=== PATIENT | male | born 1940 | race Two or more races ===

== ENCOUNTER → 2016-11-11 | Outpatient (CLI) | payer MEDICARE, BC ==
[2016-11-11 09:09] LABS: Urine RBC None Seen /hpf (0 - 3)
[2016-11-11 09:24] LABS: Basophils # (auto) 0.1 uL; Basophils % (auto) 0.9 % (0.0-2.0); Eosinophils # (auto) 0.2 uL; Eosinophils % (auto) 4.1 % (0.0-7.0); Hematocrit 40.8 % (41.0-53.0); Hemoglobin 13.6 g/dL (13.5-17.5); Lymphocytes # (auto) 2.1 uL; Lymphocytes % (auto) 34.3 % (10.0-50.0); Mean Corpuscular Hemoglobin 31.2 pg (28.0-32.0); Mean Corpuscular Hgb Conc. 33.3 g/dL (32.0-36.0); Mean Corpuscular Volume 93.8 fL (80.0-100.0); Mean Platelet Volume 9.4 fL (7.4-10.4); Monocytes # (auto) 0.5 uL; Monocytes % (auto) 8.2 % (0.0-12.0); Neutrophils # (auto) 3.2 uL; Neutrophils % (auto) 52.5 % (37.0-80.0); Platelet Count (auto) 249 10^3/uL (140-450); Red Cell Distribution Width 13.6 % (11.6-16.0)
[2016-11-11 09:40] LABS: Urine Bilirubin Negative (Negative); Urine Blood Negative /uL (Negative); Urine Color Yellow (Yellow); Urine Glucose Normal (Normal); Urine Hyaline Cast FEW /lpf (0 - 2); Urine Ketone Negative (Negative); Urine Mucus FEW (None Seen); Urine Nitrite Negative (Negative); Urine Squamous Epithelial Cell FEW /hpf (<5); Urine Urobilinogen Normal (Negative); Urine pH 5.5 (5.0-8.0)
[2016-11-11 10:37] LABS: Albumin 3.6 g/dL (3.4-5.0); BUN/Creatinine Ratio 20.8; Bilirubin, Total 0.7 mg/dL (0.2-1.0); Calcium 9.2 mg/dL (8.5-10.1); Potassium 3.7 mmol/L (3.5-5.1); Total Protein 7.5 g/dL (6.4-8.2)
== END | disposition home or self-care (01) ==
LOC: LAB 08:12
PROVIDERS: ATTEND Family Medicine
DX: I10 Essential (primary) hypertension (principal); E78.4 Other hyperlipidemia; E10.9 Type 1 diabetes mellitus without complications
CPT/HCPCS: 36415; 80053; 80061; 81001; 82043; 82306; 82607; 83036; 84443; 85025

== ENCOUNTER → 2017-12-19 | Outpatient (CLI) | payer MEDICARE, BC ==
[2017-12-19 09:20] LABS: Basophils # (auto) 0.1 uL; Basophils % (auto) 0.9 % (0.0-2.0); Eosinophils # (auto) 0.3 uL; Eosinophils % (auto) 4.6 % (0.0-7.0); Hematocrit 38.5 % (41.0-53.0); Hemoglobin 13.2 g/dL (13.5-17.5); Lymphocytes # (auto) 1.9 uL; Lymphocytes % (auto) 29.7 % (10.0-50.0); Mean Corpuscular Hemoglobin 32.2 pg (28.0-32.0); Mean Corpuscular Hgb Conc. 34.2 g/dL (32.0-36.0); Mean Corpuscular Volume 94.2 fL (80.0-100.0); Monocytes # (auto) 0.6 uL; Monocytes % (auto) 9.1 % (0.0-12.0); Neutrophils # (auto) 3.5 uL; Neutrophils % (auto) 55.7 % (37.0-80.0); Platelet Count (auto) 236 10^3/uL (140-450); Red Blood Cells 4.09 10^6/uL (4.5-5.90); White Blood Cell 6.3 10^3/uL (4.4-10.8)
[2017-12-19 09:43] LABS: Urine Bacteria NONE SEEN /hpf (None Seen); Urine Blood Negative /uL (Negative); Urine Mucus FEW (None Seen); Urine Specific Gravity 1.015 (1.001-1.035); Urine WBC 3 /hpf (0 - 3)
[2017-12-19 09:57] LABS: Albumin 3.2 g/dL (3.4-5.0); BUN/Creatinine Ratio 22.4; Bilirubin, Total 0.7 mg/dL (0.2-1.0); Calcium 8.5 mg/dL (8.5-10.1); Potassium 3.9 mmol/L (3.5-5.1); Total Protein 7.2 g/dL (6.4-8.2)
== END | disposition home or self-care (01) ==
LOC: LAB 08:39
PROVIDERS: ATTEND Family Medicine
DX: I10 Essential (primary) hypertension (principal); E11.9 Type 2 diabetes mellitus without complications; E66.9 Obesity, unspecified; E78.4 Other hyperlipidemia; Z72.0 Tobacco use
CPT/HCPCS: 36415; 80053; 80061; 81001; 82043; 82607; 83036; 84443; 85025

== ENCOUNTER → 2018-06-22 | Outpatient (CLI) | payer MEDICARE, OTHER ==
[~2018-06-22] VITALS: Ht 180.3 cm; Wt 120.7 kg
[~2018-06-22] MED LIST: ADENOSINE 102 MG in GIVE UN-DILUTED 0 ML IV ONE
[2018-06-22 10:33] VITALS: BP 140/54
== END | disposition home or self-care (01) ==
LOC: XY 07:31
PROVIDERS: ATTEND Internal Medicine Cardiovascular Disease
DX: R60.9 Edema, unspecified (principal)
CPT/HCPCS: 78452; 93017; A9500; J0153

== ENCOUNTER 2018-12-04 05:17 | Inpatient (IN) | payer MEDICARE, OTHER | END 2018-12-08 14:20 | disposition home or self-care (01) | LOC: ER 05:17 → TELE 11:35 → TELE-EAST 22:35 | PROC: B41G1ZZ Fluoroscopy of Left Lower Extremity Arteries using Low Osmolar Contrast (ICD-10-PCS; principal; ~2018-12-04) | PROC: B41F1ZZ Fluoroscopy of Right Lower Extremity Arteries using Low Osmolar Contrast (ICD-10-PCS; ~2018-12-04) | DX: L03.116 Cellulitis of left lower limb (principal); I50.43 Acute on chronic combined systolic (congestive) and diastolic (congestive) heart failure; I13.0 Hypertensive heart and chronic kidney disease with heart failure and stage 1 through stage 4 chronic kidney disease, or unspecified chronic kidney disease; E44.0 Moderate protein-calorie malnutrition; E11.51 Type 2 diabetes mellitus with diabetic peripheral angiopathy without gangrene; E11.22 Type 2 diabetes mellitus with diabetic chronic kidney disease; E78.00 Pure hypercholesterolemia, unspecified; D64.9 Anemia, unspecified; E66.9 Obesity, unspecified; D63.1 Anemia in chronic kidney disease; E87.6 Hypokalemia; R53.1 Weakness ==

== ENCOUNTER 2019-03-11 08:13 | Inpatient (IN) | payer MEDICARE, BC, OTHER | END 2019-03-16 12:50 | LOC: TELE-CENTR 03-13 12:20 → ER 08:13 → TELE 11:22 | DX: I21.4 Non-ST elevation (NSTEMI) myocardial infarction (principal); I50.43 Acute on chronic combined systolic (congestive) and diastolic (congestive) heart failure; G93.41 Metabolic encephalopathy; J96.00 Acute respiratory failure, unspecified whether with hypoxia or hypercapnia; N17.0 Acute kidney failure with tubular necrosis; G45.9 Transient cerebral ischemic attack, unspecified; I13.0 Hypertensive heart and chronic kidney disease with heart failure and stage 1 through stage 4 chronic kidney disease, or unspecified chronic kidney disease; N18.4 Chronic kidney disease, stage 4 (severe); I48.0 Paroxysmal atrial fibrillation; E11.21 Type 2 diabetes mellitus with diabetic nephropathy; E11.40 Type 2 diabetes mellitus with diabetic neuropathy, unspecified; E11.22 Type 2 diabetes mellitus with diabetic chronic kidney disease; D63.8 Anemia in other chronic diseases classified elsewhere ==

== ENCOUNTER 2019-12-11 16:11 | Inpatient (IN) | payer MEDICARE, OTHER ==
[~2019-12-11] VITALS: Ht 175.3 cm; Wt 94.0 kg
[~2019-12-11 16:11] MED LIST changes: -ADENOSINE 102 MG in GIVE UN-DILUTED 0 ML IV ONE; +AMI25T PO; +ASPI81CH43 PO; +ATOR10TA PO; +CLOP75TA28 PO; +CYA100I PO; +DULA1INJ SC; +FENO145T27 OR; +FERR-20 PO; +FURO40TA4 PO; +GABA300C10 PO; +GLIP5TAB12 PO; +INSU100I24 SC; +LEVEMIR SC; +METO-6 PO; +PANT40T PO
[2019-12-11] MEDS ORDERED: FUROSEMIDE 40 MG/4 ML VIAL IV ONE (16:45)
[2019-12-11 17:06] LABS: Basophils # (auto) 0.1 10 ^3/uL (0-0.2); Basophils % (auto) 1.2 % (0.0-2.0); Eosinophils # (auto) 0.1 10 ^3/uL (0-0.8); Eosinophils % (auto) 2.4 % (0.0-7.0); Lymphocytes # (auto) 0.6 10 ^3/uL (0.4-5.4); Lymphocytes % (auto) 12.3 % (10.0-50.0); Mean Corpuscular Hemoglobin 31.8 pg (28.0-32.0); Mean Corpuscular Hgb Conc. 33.5 g/dL (32.0-36.0); Monocytes # (auto) 0.4 10 ^3/uL (0-1.3); Monocytes % (auto) 9.3 % (0.0-12.0); Neutrophils # (auto) 3.5 10 ^3/uL (1.6-8.6); Neutrophils % (auto) 74.8 % (37.0-80.0); Platelet Count (auto) 203 10^3/uL (140-450); Red Blood Cells 2.84 10^6/uL (4.5-5.90); White Blood Cell 4.7 10^3/uL (4.4-10.8)
[2019-12-11 17:29] LABS: Alanine Aminotransferase 18 U/L (16-61); Albumin 2.4 g/dL (3.4-5.0); Anion Gap 2 (5-15); Aspartate Aminotransferase 39 U/L (15-37); BUN/Creatinine Ratio 14.2; Blood Urea Nitrogen 21 mg/dL (7-18); Calcium 8.1 mg/dL (8.5-10.1); Carbon Dioxide 25 mmol/L (21-32); Chloride 111 mmol/L (98-107); GFR African American 59 mL/min; GFR Non-African American 49 mL/min; Glucose 129 mg/dL (74-106); Potassium 4.3 mmol/L (3.5-5.1); Sodium 138 mmol/L (136-145)
[2019-12-11 17:33] LABS: Alkaline Phosphatase 59 U/L (45-117); Bilirubin, Total 0.8 mg/dL (0.2-1.0); Total Protein 6.6 g/dL (6.4-8.2)
[2019-12-11] MEDS ORDERED: NITROGLYCERIN 0.4 MG SL TAB SL PRN (19:30)
[2019-12-11] MEDS ORDERED: MORPHINE SULF INJ 2 MG/ML SYRINGE 1ML IV PRN ×2 (19:30)
[2019-12-11] MEDS ORDERED: DEXTROSE (50%) 50ML SYRG IV PRN (19:30)
[2019-12-11] MEDS ORDERED: ONDANSETRON HCL 4 MG/2 ML VIAL IV PRN (19:30)
[2019-12-11] MEDS ORDERED: ACETAMINOPHEN 500 MG TAB PO PRN (19:30)
[2019-12-11] MEDS ORDERED: HYDROcodone-ACET 5/325MG TAB PO PRN (19:30)
[2019-12-11 19:49] LABS: Urine Bacteria NONE SEEN /hpf (None Seen); Urine Blood Negative /uL (Negative); Urine Mucus FEW (None Seen); Urine Specific Gravity 1.007 (1.001-1.035); Urine WBC <1 /hpf (0 - 3)
[2019-12-11] MEDS: ACCU-CHEK COMFORT CURVE STRIP VI SCH (21:29)
[2019-12-11] MEDS: InsuLIN REG 1unit/0.01ml Soln (100units/ml) SC SCH (21:29)
[2019-12-11] MEDS: AMITRIPTYLINE HCL 25 MG TAB PO SCH (21:29)
[2019-12-11] MEDS: GABAPENTIN 300 MG CAP PO SCH (21:29)
[2019-12-11] MEDS: cloNIDine HCL 0.1 MG TAB PO PRN (21:30)
[2019-12-12 05:00] VITALS: BP 140/66
[2019-12-12 05:56] LABS: Basophils # (auto) 0.1 10 ^3/uL (0-0.2); Eosinophils # (auto) 0.2 10 ^3/uL (0-0.8); Eosinophils % (auto) 4.1 % (0.0-7.0); Hematocrit 28.2 % (41.0-53.0); Hemoglobin 9.5 g/dL (13.5-17.5); Lymphocytes # (auto) 1.1 10 ^3/uL (0.4-5.4); Lymphocytes % (auto) 18.4 % (10.0-50.0); Mean Corpuscular Hemoglobin 31.7 pg (28.0-32.0); Mean Corpuscular Hgb Conc. 33.6 g/dL (32.0-36.0); Mean Corpuscular Volume 94.4 fL (80.0-100.0); Monocytes # (auto) 0.6 10 ^3/uL (0-1.3); Monocytes % (auto) 9.4 % (0.0-12.0); Neutrophils % (auto) 67.1 % (37.0-80.0); Nucleated Red Blood Cells % 0.1 %; Platelet Count (auto) 245 10^3/uL (140-450); Red Blood Cells 2.99 10^6/uL (4.5-5.90); Red Cell Distribution Width 17.6 % (11.8-14.3)
[2019-12-12] MEDS ORDERED: FUROSEMIDE 40 MG/4 ML VIAL IV SCH (06:00)
[2019-12-12 06:17] LABS: Calcium 8.2 mg/dL (8.5-10.1); Potassium 3.5 mmol/L (3.5-5.1)
[2019-12-12 06:20] LABS: BUN/Creatinine Ratio 14.3
[2019-12-12] MEDS: InsuLIN REG 1unit/0.01ml Soln (100units/ml) SC SCH ×4 (06:37→21:52)
[2019-12-12] MEDS: SPIRONOLACTONE 25 MG TAB PO SCH ×2 (06:37→18:00)
[2019-12-12] MEDS: ACCU-CHEK COMFORT CURVE STRIP VI SCH ×4 (06:37→21:49)
[2019-12-12 09:29] VITALS: BP 149/72
[2019-12-12] MEDS: Fenofibrate 145 MG PO SCH (10:00)
[2019-12-12 10:55] LABS: Cholesterol 82 mg/dL (< 200); HDL Cholesterol 9 mg/dL (40-59); LDL Cholesterol 44 mg/dL (< 100); Triglycerides 171 mg/dL (< 150)
[2019-12-12 10:56] LABS: Folate (Folic Acid) 3.88 ng/mL (5.38-24)
[2019-12-12] MEDS: METOPROLOL SUCCINATE XL 50 MG TAB PO SCH (11:06)
[2019-12-12] MEDS: CLOPIDOGREL BISULFATE 75 MG TAB PO SCH (11:06)
[2019-12-12] MEDS: PANTOPRAZOLE 40 MG TAB PO SCH (11:06)
[2019-12-12] MEDS: GABAPENTIN 300 MG CAP PO SCH ×2 (11:06→21:49)
[2019-12-12] MEDS: levoFLOXacin 250MG 50 ML IV SCH (11:07)
[2019-12-12] MEDS: NICOTINE 21MG/24 HR TOPICAL PATCH TD SCH (11:07)
[2019-12-12] MEDS: ASPirin 81 mg TAB PO SCH (11:07)
[2019-12-12] MEDS: ALBUTEROL SULF 2.5 MG/0.5ML(0.5%) NEB SOLN NEB SCH ×2 (13:00→19:34)
[2019-12-12] MEDS: IPRATROPIUM BROM 0.5 MG/2.5ML INH SOL NEB SCH ×2 (13:00→19:34)
[2019-12-12 13:01] VITALS: BP 160/70
[2019-12-12] MEDS ORDERED: BUMETANIDE 2.5mg/10ml (0.25 mg/ml) INJ IV ONE (14:00)
[2019-12-12] MEDS ORDERED: FOLIC ACID 1 MG TAB PO ONE (14:00)
[2019-12-12 15:22] VITALS: BP 160/70
[2019-12-12] MEDS ORDERED: POTASSIUM CHL 20 Meq TABLET PO ONE (16:45)
[2019-12-12] MEDS ORDERED: SPIRONOLACTONE 25 MG TAB PO ONE (17:15)
[2019-12-12 17:43] VITALS: BP 147/71
[2019-12-12] MEDS: BUMETANIDE 2.5mg/10ml (0.25 mg/ml) INJ IV SCH (18:14)
[2019-12-12] MEDS: cloNIDine HCL 0.1 MG TAB PO PRN (20:56)
[2019-12-12] MEDS: ATORVASTATIN 20 MG TAB PO SCH (21:49)
[2019-12-12] MEDS: AMITRIPTYLINE HCL 25 MG TAB PO SCH (21:49)
[2019-12-12 22:00] VITALS: BP 168/76
[2019-12-13] MEDS: ALBUTEROL SULF 2.5 MG/0.5ML(0.5%) NEB SOLN NEB SCH ×4 (00:01→18:38)
[2019-12-13] MEDS: IPRATROPIUM BROM 0.5 MG/2.5ML INH SOL NEB SCH ×4 (00:01→18:39)
[2019-12-13 02:00] VITALS: BP 126/63
[2019-12-13 04:49] VITALS: BP 134/56
[2019-12-13 06:11] LABS: BUN/Creatinine Ratio 16.8; Calcium 8.5 mg/dL (8.5-10.1); Potassium 3.9 mmol/L (3.5-5.1)
[2019-12-13] MEDS: InsuLIN REG 1unit/0.01ml Soln (100units/ml) SC SCH ×4 (06:38→22:00)
[2019-12-13] MEDS: ACCU-CHEK COMFORT CURVE STRIP VI SCH ×4 (06:38→21:55)
[2019-12-13] MEDS: SPIRONOLACTONE 25 MG TAB PO SCH ×2 (06:38→17:37)
[2019-12-13] MEDS: BUMETANIDE 2.5mg/10ml (0.25 mg/ml) INJ IV SCH ×2 (06:38→17:39)
[2019-12-13 09:00] VITALS: BP 131/58
[2019-12-13] MEDS: Fenofibrate 145 MG PO SCH (10:00)
[2019-12-13] MEDS: ASPirin 81 mg TAB PO SCH (10:48)
[2019-12-13] MEDS: levoFLOXacin 250MG 50 ML IV SCH (10:48)
[2019-12-13] MEDS: PANTOPRAZOLE 40 MG TAB PO SCH (10:49)
[2019-12-13] MEDS: GABAPENTIN 300 MG CAP PO SCH ×2 (10:49→21:52)
[2019-12-13] MEDS: CLOPIDOGREL BISULFATE 75 MG TAB PO SCH (10:49)
[2019-12-13] MEDS: POTASSIUM CHL 20 Meq TABLET PO SCH (10:49)
[2019-12-13] MEDS: FOLIC ACID 1 MG TAB PO SCH (10:49)
[2019-12-13] MEDS: METOPROLOL SUCCINATE XL 50 MG TAB PO SCH (10:50)
[2019-12-13] MEDS: NICOTINE 21MG/24 HR TOPICAL PATCH TD SCH (10:51)
[2019-12-13 13:00] VITALS: BP 152/74
[2019-12-13 17:00] VITALS: BP 155/82
[2019-12-13] MEDS: cloNIDine HCL 0.1 MG TAB PO PRN (21:52)
[2019-12-13] MEDS: AMITRIPTYLINE HCL 25 MG TAB PO SCH (21:53)
[2019-12-13] MEDS: ATORVASTATIN 20 MG TAB PO SCH (21:53)
[2019-12-13 22:00] VITALS: BP 165/81
[2019-12-14] VITALS (7 sets, daily range): BP systolic 135–166; BP diastolic 64–74
[2019-12-14] MEDS: IPRATROPIUM BROM 0.5 MG/2.5ML INH SOL NEB SCH ×4 (00:14→18:33)
[2019-12-14] MEDS: ALBUTEROL SULF 2.5 MG/0.5ML(0.5%) NEB SOLN NEB SCH ×4 (00:14→18:33)
[2019-12-14] MEDS: SPIRONOLACTONE 25 MG TAB PO SCH ×2 (05:45→18:01)
[2019-12-14] MEDS: BUMETANIDE 2.5mg/10ml (0.25 mg/ml) INJ IV SCH (05:45)
[2019-12-14 06:12] LABS: Basophils # (auto) 0 10 ^3/uL (0-0.2); Basophils % (auto) 0.8 % (0.0-2.0); Eosinophils # (auto) 0.3 10 ^3/uL (0-0.8); Eosinophils % (auto) 7.2 % (0.0-7.0); Hematocrit 26.8 % (41.0-53.0); Lymphocytes % (auto) 22.5 % (10.0-50.0); Mean Corpuscular Hemoglobin 31.2 pg (28.0-32.0); Mean Corpuscular Hgb Conc. 33.4 g/dL (32.0-36.0); Mean Corpuscular Volume 93.2 fL (80.0-100.0); Monocytes # (auto) 0.4 10 ^3/uL (0-1.3); Monocytes % (auto) 10.1 % (0.0-12.0); Neutrophils # (auto) 2.6 10 ^3/uL (1.6-8.6); Neutrophils % (auto) 59.4 % (37.0-80.0); Nucleated Red Blood Cells % 0.1 %; Platelet Count (auto) 203 10^3/uL (140-450); Red Blood Cells 2.87 10^6/uL (4.5-5.90); White Blood Cell 4.4 10^3/uL (4.4-10.8)
[2019-12-14] MEDS: ACCU-CHEK COMFORT CURVE STRIP VI SCH ×4 (06:33→22:00)
[2019-12-14] MEDS: InsuLIN REG 1unit/0.01ml Soln (100units/ml) SC SCH ×4 (06:33→22:16)
[2019-12-14 06:36] LABS: Calcium 8.6 mg/dL (8.5-10.1); Potassium 4.7 mmol/L (3.5-5.1)
[2019-12-14 06:39] LABS: BUN/Creatinine Ratio 22.2
[2019-12-14] MEDS ORDERED: LIDOCAINE W/ EPINEPHRINE 1% 20ML VIAL ONE ×3 (07:11→07:12)
[2019-12-14] MEDS ORDERED: VANCOMYCIN HCL 1000 MG VL ONE ×2 (07:21→09:01)
[2019-12-14] MEDS ORDERED: fentaNYL CITRATE 100 MCG/2 ML VL ONE (07:30)
[2019-12-14] MEDS ORDERED: MIDAZOLAM HCL 1MG/1ML-2 ML VIAL ONE (07:30)
[2019-12-14] MEDS ORDERED: MEPERIDINE HCL (25 MG/ML) 1ML VIAL ONE (07:30)
[2019-12-14] MEDS ORDERED: DexAMETHasone SOD PHOS 10MG/1ML VIAL INJ ONE (09:09)
[2019-12-14] MEDS: Fenofibrate 145 MG PO SCH (10:00)
[2019-12-14] MEDS: FOLIC ACID 1 MG TAB PO SCH (11:14)
[2019-12-14] MEDS: ASPirin 81 mg TAB PO SCH (11:14)
[2019-12-14] MEDS: levoFLOXacin 250MG 50 ML IV SCH (11:14)
[2019-12-14] MEDS: CLOPIDOGREL BISULFATE 75 MG TAB PO SCH (11:15)
[2019-12-14] MEDS: PANTOPRAZOLE 40 MG TAB PO SCH (11:15)
[2019-12-14] MEDS: POTASSIUM CHL 20 Meq TABLET PO SCH (11:15)
[2019-12-14] MEDS: GABAPENTIN 300 MG CAP PO SCH ×2 (11:15→22:00)
[2019-12-14] MEDS: METOPROLOL SUCCINATE XL 50 MG TAB PO SCH (11:16)
[2019-12-14] MEDS: NICOTINE 21MG/24 HR TOPICAL PATCH TD SCH (11:17)
[2019-12-14] MEDS ORDERED: metOLazone 5 MG TAB PO ONE (12:30)
[2019-12-14] MEDS: ALBUMIN 25% 100 ML IV SCH ×2 (13:30→15:31)
[2019-12-14] MEDS: FUROSEMIDE 40 MG/4 ML VIAL IV SCH ×2 (15:33→21:59)
[2019-12-14] MEDS ORDERED: ALBUMIN 25% 100 ML IV SCH (18:15)
[2019-12-14] MEDS: ATORVASTATIN 20 MG TAB PO SCH (21:59)
[2019-12-14] MEDS: AMITRIPTYLINE HCL 25 MG TAB PO SCH (21:59)
[2019-12-14 23:13] LABS: Protein, Urine 8.9 mg/dL (0.0-11.9)
[2019-12-15] VITALS (7 sets, daily range): BP systolic 132–145; BP diastolic 53–82
[2019-12-15] MEDS: ALBUTEROL SULF 2.5 MG/0.5ML(0.5%) NEB SOLN NEB SCH ×4 (00:19→18:48)
[2019-12-15] MEDS: IPRATROPIUM BROM 0.5 MG/2.5ML INH SOL NEB SCH ×4 (00:19→18:48)
[2019-12-15] MEDS: ACETYLCYSTEINE 10 %(100MG/ML) SOL 4ML NEB SCH ×4 (00:19→18:48)
[2019-12-15] MEDS: FUROSEMIDE 40 MG/4 ML VIAL IV SCH ×3 (06:16→21:52)
[2019-12-15] MEDS: SPIRONOLACTONE 25 MG TAB PO SCH ×2 (06:17→17:59)
[2019-12-15] MEDS: ACCU-CHEK COMFORT CURVE STRIP VI SCH ×4 (06:17→21:53)
[2019-12-15] MEDS: InsuLIN REG 1unit/0.01ml Soln (100units/ml) SC SCH ×4 (06:33→22:04)
[2019-12-15] MEDS: Fenofibrate 145 MG PO SCH (10:00)
[2019-12-15] MEDS ORDERED: POTASSIUM CHL 20 Meq TABLET PO SCH (10:00)
[2019-12-15] MEDS: GABAPENTIN 300 MG CAP PO SCH ×2 (10:38→21:52)
[2019-12-15] MEDS: levoFLOXacin 250MG 50 ML IV SCH (10:38)
[2019-12-15] MEDS: FOLIC ACID 1 MG TAB PO SCH (10:38)
[2019-12-15] MEDS: ASPirin 81 mg TAB PO SCH (10:38)
[2019-12-15] MEDS: METOPROLOL SUCCINATE XL 50 MG TAB PO SCH (10:39)
[2019-12-15] MEDS: CLOPIDOGREL BISULFATE 75 MG TAB PO SCH (10:39)
[2019-12-15] MEDS: PANTOPRAZOLE 40 MG TAB PO SCH (10:39)
[2019-12-15] MEDS: NICOTINE 21MG/24 HR TOPICAL PATCH TD SCH (10:40)
[2019-12-15 10:58] LABS: BUN/Creatinine Ratio 21.3; Calcium 9.5 mg/dL (8.5-10.1); Potassium 4.3 mmol/L (3.5-5.1)
[2019-12-15] MEDS: AMITRIPTYLINE HCL 25 MG TAB PO SCH (21:52)
[2019-12-15] MEDS: ATORVASTATIN 20 MG TAB PO SCH (21:52)
[2019-12-16] MEDS: ACETYLCYSTEINE 10 %(100MG/ML) SOL 4ML NEB SCH ×5 (00:17→23:32)
[2019-12-16] MEDS: ALBUTEROL SULF 2.5 MG/0.5ML(0.5%) NEB SOLN NEB SCH ×5 (00:17→23:32)
[2019-12-16] MEDS: IPRATROPIUM BROM 0.5 MG/2.5ML INH SOL NEB SCH ×5 (00:17→23:32)
[2019-12-16 05:20] VITALS: BP 119/46
[2019-12-16] MEDS: ACCU-CHEK COMFORT CURVE STRIP VI SCH ×4 (06:32→21:40)
[2019-12-16] MEDS: FUROSEMIDE 40 MG/4 ML VIAL IV SCH ×2 (06:32→18:05)
[2019-12-16] MEDS: SPIRONOLACTONE 25 MG TAB PO SCH ×2 (06:32→18:05)
[2019-12-16] MEDS: InsuLIN REG 1unit/0.01ml Soln (100units/ml) SC SCH ×4 (06:44→21:41)
[2019-12-16 07:55] LABS: BUN/Creatinine Ratio 22.2; Calcium 9.6 mg/dL (8.5-10.1)
[2019-12-16 08:00] VITALS: BP 134/59
[2019-12-16 09:29] VITALS: BP 134/59
[2019-12-16] MEDS: Fenofibrate 145 MG PO SCH (10:00)
[2019-12-16] MEDS: ASPirin 81 mg TAB PO SCH (10:35)
[2019-12-16] MEDS: GABAPENTIN 300 MG CAP PO SCH ×2 (10:35→21:40)
[2019-12-16] MEDS: PANTOPRAZOLE 40 MG TAB PO SCH (10:35)
[2019-12-16] MEDS: levoFLOXacin 250MG 50 ML IV SCH (10:35)
[2019-12-16] MEDS: CLOPIDOGREL BISULFATE 75 MG TAB PO SCH (10:36)
[2019-12-16] MEDS: NICOTINE 21MG/24 HR TOPICAL PATCH TD SCH (10:36)
[2019-12-16] MEDS: FOLIC ACID 1 MG TAB PO SCH (10:36)
[2019-12-16] MEDS: METOPROLOL SUCCINATE XL 50 MG TAB PO SCH (10:37)
[2019-12-16 13:41] VITALS: BP 142/60
[2019-12-16 16:42] VITALS: BP 116/50
[2019-12-16] MEDS: AMITRIPTYLINE HCL 25 MG TAB PO SCH (21:40)
[2019-12-16] MEDS: ATORVASTATIN 20 MG TAB PO SCH (21:40)
[2019-12-16 22:00] VITALS: BP 141/53
[2019-12-17 05:00] VITALS: BP 133/49
[2019-12-17] MEDS: FUROSEMIDE 40 MG/4 ML VIAL IV SCH ×2 (06:17→17:45)
[2019-12-17] MEDS: ACCU-CHEK COMFORT CURVE STRIP VI SCH ×4 (06:18→21:59)
[2019-12-17] MEDS: SPIRONOLACTONE 25 MG TAB PO SCH ×2 (06:18→17:45)
[2019-12-17] MEDS: ALBUTEROL SULF 2.5 MG/0.5ML(0.5%) NEB SOLN NEB SCH ×3 (06:28→19:26)
[2019-12-17] MEDS: ACETYLCYSTEINE 10 %(100MG/ML) SOL 4ML NEB SCH ×3 (06:28→19:26)
[2019-12-17] MEDS: IPRATROPIUM BROM 0.5 MG/2.5ML INH SOL NEB SCH ×3 (06:28→19:26)
[2019-12-17 06:32] LABS: BUN/Creatinine Ratio 23.9; Calcium 9.6 mg/dL (8.5-10.1)
[2019-12-17] MEDS: InsuLIN REG 1unit/0.01ml Soln (100units/ml) SC SCH ×4 (06:46→22:09)
[2019-12-17 08:00] VITALS: BP 130/59
[2019-12-17 08:57] VITALS: BP 130/59
[2019-12-17] MEDS: Fenofibrate 145 MG PO SCH (10:00)
[2019-12-17] MEDS: levoFLOXacin 250MG 50 ML IV SCH (10:05)
[2019-12-17] MEDS: PANTOPRAZOLE 40 MG TAB PO SCH (10:06)
[2019-12-17] MEDS: GABAPENTIN 300 MG CAP PO SCH ×2 (10:06→21:55)
[2019-12-17] MEDS: CLOPIDOGREL BISULFATE 75 MG TAB PO SCH (10:06)
[2019-12-17] MEDS: ASPirin 81 mg TAB PO SCH (10:06)
[2019-12-17] MEDS: FOLIC ACID 1 MG TAB PO SCH (10:06)
[2019-12-17] MEDS: METOPROLOL SUCCINATE XL 50 MG TAB PO SCH (10:07)
[2019-12-17] MEDS: NICOTINE 21MG/24 HR TOPICAL PATCH TD SCH (10:08)
[2019-12-17 13:00] VITALS: BP 106/50
[2019-12-17 17:00] VITALS: BP 132/48
[2019-12-17] MEDS: AMITRIPTYLINE HCL 25 MG TAB PO SCH (21:54)
[2019-12-17] MEDS: ATORVASTATIN 20 MG TAB PO SCH (21:55)
[2019-12-17 22:00] VITALS: BP 138/52
[2019-12-18] MEDS: ALBUTEROL SULF 2.5 MG/0.5ML(0.5%) NEB SOLN NEB SCH ×4 (00:20→19:18)
[2019-12-18] MEDS: IPRATROPIUM BROM 0.5 MG/2.5ML INH SOL NEB SCH ×4 (00:20→19:18)
[2019-12-18] MEDS: ACETYLCYSTEINE 10 %(100MG/ML) SOL 4ML NEB SCH ×4 (00:20→19:18)
[2019-12-18 05:00] VITALS: BP 130/59
[2019-12-18 06:03] LABS: Albumin 2.1 g/dL (3.4-5.0)
[2019-12-18 06:06] LABS: BUN/Creatinine Ratio 30.1; Calcium 9.7 mg/dL (8.5-10.1)
[2019-12-18 06:08] LABS: Bilirubin, Total 0.5 mg/dL (0.2-1.0); Phosphorus 3.9 mg/dL (2.5-4.90); Total Protein 6.4 g/dL (6.4-8.2)
[2019-12-18] MEDS: SPIRONOLACTONE 25 MG TAB PO SCH (06:19)
[2019-12-18] MEDS: ACCU-CHEK COMFORT CURVE STRIP VI SCH ×4 (06:22→22:00)
[2019-12-18] MEDS: InsuLIN REG 1unit/0.01ml Soln (100units/ml) SC SCH ×4 (06:56→22:00)
[2019-12-18 08:06] LABS: Immunoglobulin G, Serum 1353 mg/dL (700-1600)
[2019-12-18 09:00] VITALS: BP_SYST 125; BP_SYST 130; BP_DIAS 49; BP_DIAS 59
[2019-12-18] MEDS: levoFLOXacin 250MG 50 ML IV SCH (09:10)
[2019-12-18] MEDS: ASPirin 81 mg TAB PO SCH (09:11)
[2019-12-18] MEDS: CLOPIDOGREL BISULFATE 75 MG TAB PO SCH (09:11)
[2019-12-18] MEDS: FOLIC ACID 1 MG TAB PO SCH (09:11)
[2019-12-18] MEDS: NICOTINE 21MG/24 HR TOPICAL PATCH TD SCH (09:11)
[2019-12-18] MEDS: PANTOPRAZOLE 40 MG TAB PO SCH (09:12)
[2019-12-18] MEDS: METOPROLOL SUCCINATE XL 50 MG TAB PO SCH (09:12)
[2019-12-18] MEDS: GABAPENTIN 300 MG CAP PO SCH (09:12)
[2019-12-18] MEDS: Fenofibrate 145 MG PO SCH (09:13)
[2019-12-18] MEDS: acetaZOLAMIDE SODIUM 500 MG VL IV SCH ×2 (11:36→22:00)
[2019-12-18 12:17] VITALS: BP 127/52
[2019-12-18] MEDS ORDERED: TAMSULOSIN HYDROCHLORIDE 0.4 MG CAP PO ONE (15:30)
[2019-12-18 16:21] VITALS: BP 127/50
[2019-12-18 22:00] VITALS: BP 134/54
[2019-12-18] MEDS: ATORVASTATIN 20 MG TAB PO SCH (22:00)
[2019-12-18] MEDS: AMITRIPTYLINE HCL 25 MG TAB PO SCH (22:00)
[2019-12-19] MEDS: ACETYLCYSTEINE 10 %(100MG/ML) SOL 4ML NEB SCH ×4 (00:01→19:17)
[2019-12-19] MEDS: ALBUTEROL SULF 2.5 MG/0.5ML(0.5%) NEB SOLN NEB SCH ×4 (00:01→19:17)
[2019-12-19] MEDS: IPRATROPIUM BROM 0.5 MG/2.5ML INH SOL NEB SCH ×4 (00:01→19:17)
[2019-12-19 05:00] VITALS: BP 117/54
[2019-12-19 06:23] LABS: Potassium 4.1 mmol/L (3.5-5.1)
[2019-12-19 06:29] LABS: Albumin 2.2 g/dL (3.4-5.0); BUN/Creatinine Ratio 30.9; Calcium 9.2 mg/dL (8.5-10.1)
[2019-12-19 06:43] LABS: Bilirubin, Total 0.5 mg/dL (0.2-1.0); Total Protein 6.6 g/dL (6.4-8.2)
[2019-12-19] MEDS: InsuLIN REG 1unit/0.01ml Soln (100units/ml) SC SCH ×4 (08:10→21:55)
[2019-12-19] MEDS: ACCU-CHEK COMFORT CURVE STRIP VI SCH ×4 (08:10→21:53)
[2019-12-19 09:00] VITALS: BP 121/54
[2019-12-19] MEDS: NICOTINE 21MG/24 HR TOPICAL PATCH TD SCH (09:03)
[2019-12-19] MEDS: levoFLOXacin 250MG 50 ML IV SCH (09:03)
[2019-12-19] MEDS: ASPirin 81 mg TAB PO SCH (09:03)
[2019-12-19] MEDS: PANTOPRAZOLE 40 MG TAB PO SCH (09:04)
[2019-12-19] MEDS: CLOPIDOGREL BISULFATE 75 MG TAB PO SCH (09:04)
[2019-12-19] MEDS: FOLIC ACID 1 MG TAB PO SCH (09:04)
[2019-12-19] MEDS: METOPROLOL SUCCINATE XL 50 MG TAB PO SCH (09:04)
[2019-12-19] MEDS: Fenofibrate 145 MG PO SCH (09:04)
[2019-12-19] MEDS: FUROSEMIDE 40 MG TAB PO SCH (09:04)
[2019-12-19 13:00] VITALS: BP 119/59
[2019-12-19 17:00] VITALS: BP 115/42
[2019-12-19] MEDS ORDERED: TAMSULOSIN HYDROCHLORIDE 0.4 MG CAP PO SCH (18:00)
[2019-12-19] MEDS: TAMSULOSIN HYDROCHLORIDE 0.4 MG CAP PO SCH (18:15)
[2019-12-19 21:44] VITALS: BP_SYST 130; BP_SYST 142; BP_DIAS 53; BP_DIAS 64
[2019-12-19] MEDS: AMITRIPTYLINE HCL 25 MG TAB PO SCH (21:53)
[2019-12-19] MEDS: ATORVASTATIN 20 MG TAB PO SCH (21:53)
[2019-12-20] VITALS (14 sets, daily range): BP systolic 120–152; BP diastolic 46–88
[2019-12-20 05:50] LABS: Basophils # (auto) 0.1 10 ^3/uL (0-0.2); Basophils % (auto) 1.3 % (0.0-2.0); Eosinophils # (auto) 0.4 10 ^3/uL (0-0.8); Eosinophils % (auto) 7.6 % (0.0-7.0); Hematocrit 21.1 % (41.0-53.0); Hemoglobin 7.3 g/dL (13.5-17.5); Lymphocytes # (auto) 0.8 10 ^3/uL (0.4-5.4); Mean Corpuscular Hemoglobin 31.3 pg (28.0-32.0); Mean Corpuscular Hgb Conc. 34.4 g/dL (32.0-36.0); Monocytes # (auto) 0.5 10 ^3/uL (0-1.3); Monocytes % (auto) 10.5 % (0.0-12.0); Neutrophils # (auto) 3.3 10 ^3/uL (1.6-8.6); Neutrophils % (auto) 65.6 % (37.0-80.0); Platelet Count (auto) 209 10^3/uL (140-450); Red Blood Cells 2.32 10^6/uL (4.5-5.90); Red Cell Distribution Width 16.1 % (11.8-14.3)
[2019-12-20 05:57] LABS: Albumin 2.2 g/dL (3.4-5.0); Calcium 8.7 mg/dL (8.5-10.1); Potassium 3.6 mmol/L (3.5-5.1)
[2019-12-20 06:01] LABS: BUN/Creatinine Ratio 32.4; Bilirubin, Total 0.6 mg/dL (0.2-1.0); Total Protein 6.5 g/dL (6.4-8.2)
[2019-12-20] MEDS: ACCU-CHEK COMFORT CURVE STRIP VI SCH ×4 (06:27→22:00)
[2019-12-20] MEDS: InsuLIN REG 1unit/0.01ml Soln (100units/ml) SC SCH ×4 (06:29→22:09)
[2019-12-20] MEDS: ALBUTEROL SULF 2.5 MG/0.5ML(0.5%) NEB SOLN NEB SCH ×4 (07:05→18:58)
[2019-12-20] MEDS: IPRATROPIUM BROM 0.5 MG/2.5ML INH SOL NEB SCH ×4 (07:05→18:58)
[2019-12-20] MEDS: ACETYLCYSTEINE 10 %(100MG/ML) SOL 4ML NEB SCH ×4 (07:05→18:59)
[2019-12-20] MEDS: levoFLOXacin 250MG 50 ML IV SCH (09:28)
[2019-12-20] MEDS: Fenofibrate 145 MG PO SCH (09:28)
[2019-12-20] MEDS: ASPirin 81 mg TAB PO SCH (09:28)
[2019-12-20] MEDS: METOPROLOL SUCCINATE XL 50 MG TAB PO SCH (09:29)
[2019-12-20] MEDS: PANTOPRAZOLE 40 MG TAB PO SCH ×2 (09:29→21:42)
[2019-12-20] MEDS: FOLIC ACID 1 MG TAB PO SCH (09:29)
[2019-12-20] MEDS: CLOPIDOGREL BISULFATE 75 MG TAB PO SCH (09:29)
[2019-12-20] MEDS: NICOTINE 21MG/24 HR TOPICAL PATCH TD SCH (09:30)
[2019-12-20] MEDS ORDERED: POLYETHYLENE GLYCOL 17 GM PWDR PO ONE (09:30)
[2019-12-20] MEDS: FUROSEMIDE 40 MG TAB PO SCH (09:30)
[2019-12-20 10:54] LABS: Urine Bacteria FEW /hpf (None Seen); Urine Blood 1+ /uL (Negative); Urine Specific Gravity 1.014 (1.001-1.035); Urine WBC 6 /hpf (0 - 3)
[2019-12-20] MEDS: TAMSULOSIN HYDROCHLORIDE 0.4 MG CAP PO SCH (18:16)
[2019-12-20] MEDS: ATORVASTATIN 20 MG TAB PO SCH (21:42)
[2019-12-20] MEDS: AMITRIPTYLINE HCL 25 MG TAB PO SCH (21:42)
[2019-12-21] MEDS: ACETYLCYSTEINE 10 %(100MG/ML) SOL 4ML NEB SCH ×4 (00:19→19:23)
[2019-12-21] MEDS: IPRATROPIUM BROM 0.5 MG/2.5ML INH SOL NEB SCH ×4 (00:19→19:22)
[2019-12-21] MEDS: ALBUTEROL SULF 2.5 MG/0.5ML(0.5%) NEB SOLN NEB SCH ×4 (00:19→19:22)
[2019-12-21 05:00] VITALS: BP 152/65
[2019-12-21] MEDS: ACCU-CHEK COMFORT CURVE STRIP VI SCH ×4 (06:01→21:28)
[2019-12-21] MEDS: InsuLIN REG 1unit/0.01ml Soln (100units/ml) SC SCH ×4 (06:04→21:28)
[2019-12-21 07:41] LABS: Basophils # (auto) 0.1 10 ^3/uL (0-0.2); Eosinophils # (auto) 0.4 10 ^3/uL (0-0.8); Hemoglobin 8.4 g/dL (13.5-17.5); Lymphocytes # (auto) 0.8 10 ^3/uL (0.4-5.4); Monocytes # (auto) 0.6 10 ^3/uL (0-1.3); White Blood Cell 6.6 10^3/uL (4.4-10.8)
[2019-12-21 07:42] LABS: Eosinophils % (auto) 5.9 % (0.0-7.0); Hematocrit 24.4 % (41.0-53.0); Lymphocytes % (auto) 12.5 % (10.0-50.0); Mean Corpuscular Hemoglobin 30.9 pg (28.0-32.0); Mean Corpuscular Hgb Conc. 34.3 g/dL (32.0-36.0); Mean Corpuscular Volume 90.3 fL (80.0-100.0); Monocytes % (auto) 8.4 % (0.0-12.0); Neutrophils # (auto) 4.8 10 ^3/uL (1.6-8.6); Neutrophils % (auto) 72.2 % (37.0-80.0); Nucleated Red Blood Cells % 0.1 %; Platelet Count (auto) 236 10^3/uL (140-450)
[2019-12-21 07:57] LABS: BUN/Creatinine Ratio 30.3; Calcium 8.5 mg/dL (8.5-10.1); Potassium 3.7 mmol/L (3.5-5.1)
[2019-12-21 08:00] VITALS: BP 134/56
[2019-12-21 08:58] VITALS: BP 152/65
[2019-12-21] MEDS: PANTOPRAZOLE 40 MG TAB PO SCH ×2 (09:27→21:30)
[2019-12-21] MEDS: METOPROLOL SUCCINATE XL 50 MG TAB PO SCH (09:27)
[2019-12-21] MEDS: ASPirin 81 mg TAB PO SCH (09:28)
[2019-12-21] MEDS: FOLIC ACID 1 MG TAB PO SCH (09:28)
[2019-12-21] MEDS: NICOTINE 21MG/24 HR TOPICAL PATCH TD SCH (09:31)
[2019-12-21] MEDS: POLYETHYLENE GLYCOL 17 GM PWDR PO SCH (09:31)
[2019-12-21] MEDS: levoFLOXacin 250MG 50 ML IV SCH (09:31)
[2019-12-21] MEDS: Fenofibrate 145 MG PO SCH (10:00)
[2019-12-21 12:00] VITALS: BP 124/55
[2019-12-21 17:04] VITALS: BP 147/74
[2019-12-21] MEDS: TAMSULOSIN HYDROCHLORIDE 0.4 MG CAP PO SCH (17:37)
[2019-12-21] MEDS: AMITRIPTYLINE HCL 25 MG TAB PO SCH (21:30)
[2019-12-21] MEDS: ATORVASTATIN 20 MG TAB PO SCH (21:30)
[2019-12-21 22:00] VITALS: BP 130/54
[2019-12-22] MEDS: IPRATROPIUM BROM 0.5 MG/2.5ML INH SOL NEB SCH ×4 (00:54→18:17)
[2019-12-22] MEDS: ALBUTEROL SULF 2.5 MG/0.5ML(0.5%) NEB SOLN NEB SCH ×4 (00:54→18:17)
[2019-12-22] MEDS: ACETYLCYSTEINE 10 %(100MG/ML) SOL 4ML NEB SCH ×4 (00:55→18:17)
[2019-12-22 05:00] VITALS: BP 119/53
[2019-12-22] MEDS: ACCU-CHEK COMFORT CURVE STRIP VI SCH ×4 (06:38→22:07)
[2019-12-22] MEDS: InsuLIN REG 1unit/0.01ml Soln (100units/ml) SC SCH ×4 (06:38→22:08)
[2019-12-22 08:17] LABS: Basophils # (auto) 0.1 10 ^3/uL (0-0.2); Hematocrit 24.4 % (41.0-53.0); Hemoglobin 8.3 g/dL (13.5-17.5); Neutrophils # (auto) 5.6 10 ^3/uL (1.6-8.6)
[2019-12-22 08:19] LABS: Basophils % (auto) 0.9 % (0.0-2.0); Eosinophils # (auto) 0.4 10 ^3/uL (0-0.8); Eosinophils % (auto) 5.8 % (0.0-7.0); Lymphocytes % (auto) 12.3 % (10.0-50.0); Mean Corpuscular Hemoglobin 30.8 pg (28.0-32.0); Mean Corpuscular Hgb Conc. 34.1 g/dL (32.0-36.0); Mean Corpuscular Volume 90.3 fL (80.0-100.0); Monocytes # (auto) 0.7 10 ^3/uL (0-1.3); Monocytes % (auto) 8.5 % (0.0-12.0); Neutrophils % (auto) 72.5 % (37.0-80.0); Platelet Count (auto) 272 10^3/uL (140-450); White Blood Cell 7.8 10^3/uL (4.4-10.8)
[2019-12-22 08:36] LABS: BUN/Creatinine Ratio 31.8; Calcium 8.6 mg/dL (8.5-10.1); Potassium 3.5 mmol/L (3.5-5.1)
[2019-12-22 09:12] VITALS: BP 119/50
[2019-12-22] MEDS: NICOTINE 21MG/24 HR TOPICAL PATCH TD SCH (10:00)
[2019-12-22] MEDS: Fenofibrate 145 MG PO SCH (10:00)
[2019-12-22] MEDS: PANTOPRAZOLE 40 MG TAB PO SCH ×2 (10:32→22:00)
[2019-12-22] MEDS: METOPROLOL SUCCINATE XL 50 MG TAB PO SCH (10:33)
[2019-12-22] MEDS: POLYETHYLENE GLYCOL 17 GM PWDR PO SCH (10:34)
[2019-12-22] MEDS: ASPirin 81 mg TAB PO SCH (10:34)
[2019-12-22] MEDS: FOLIC ACID 1 MG TAB PO SCH (10:35)
[2019-12-22] MEDS: levoFLOXacin 250MG 50 ML IV SCH (10:35)
[2019-12-22 12:46] VITALS: BP 132/48
[2019-12-22 17:26] VITALS: BP 136/48
[2019-12-22] MEDS: TAMSULOSIN HYDROCHLORIDE 0.4 MG CAP PO SCH (17:56)
[2019-12-22 22:00] VITALS: BP 143/57
[2019-12-22] MEDS: AMITRIPTYLINE HCL 25 MG TAB PO SCH (22:00)
[2019-12-22] MEDS: ATORVASTATIN 20 MG TAB PO SCH (22:00)
[2019-12-23] MEDS: ACETYLCYSTEINE 10 %(100MG/ML) SOL 4ML NEB SCH ×4 (00:09→18:22)
[2019-12-23] MEDS: IPRATROPIUM BROM 0.5 MG/2.5ML INH SOL NEB SCH ×4 (00:09→18:22)
[2019-12-23] MEDS: ALBUTEROL SULF 2.5 MG/0.5ML(0.5%) NEB SOLN NEB SCH ×4 (00:10→18:22)
[2019-12-23 05:22] VITALS: BP 125/50
[2019-12-23 06:31] LABS: Basophils # (auto) 0.1 10 ^3/uL (0-0.2); Basophils % (auto) 1.1 % (0.0-2.0); Eosinophils # (auto) 0.5 10 ^3/uL (0-0.8); Eosinophils % (auto) 6.5 % (0.0-7.0); Hematocrit 22.7 % (41.0-53.0); Hemoglobin 7.7 g/dL (13.5-17.5); Lymphocytes # (auto) 1.1 10 ^3/uL (0.4-5.4); Lymphocytes % (auto) 15.2 % (10.0-50.0); Mean Corpuscular Hemoglobin 30.7 pg (28.0-32.0); Mean Corpuscular Hgb Conc. 33.9 g/dL (32.0-36.0); Mean Corpuscular Volume 90.7 fL (80.0-100.0); Monocytes # (auto) 0.7 10 ^3/uL (0-1.3); Monocytes % (auto) 10.1 % (0.0-12.0); Neutrophils # (auto) 4.7 10 ^3/uL (1.6-8.6); Neutrophils % (auto) 67.1 % (37.0-80.0); Platelet Count (auto) 240 10^3/uL (140-450); Red Blood Cells 2.51 10^6/uL (4.5-5.90); Red Cell Distribution Width 15.7 % (11.8-14.3); White Blood Cell 7.1 10^3/uL (4.4-10.8)
[2019-12-23] MEDS: ACCU-CHEK COMFORT CURVE STRIP VI SCH ×4 (06:31→21:51)
[2019-12-23] MEDS: InsuLIN REG 1unit/0.01ml Soln (100units/ml) SC SCH ×4 (06:31→21:52)
[2019-12-23 06:45] LABS: INR 1.24 (0.9-1.15)
[2019-12-23 06:52] LABS: BUN/Creatinine Ratio 33.3; Calcium 8.7 mg/dL (8.5-10.1); Potassium 3.3 mmol/L (3.5-5.1)
[2019-12-23 08:46] VITALS: BP 139/59
[2019-12-23] MEDS: METOPROLOL SUCCINATE XL 50 MG TAB PO SCH (10:00)
[2019-12-23] MEDS: Fenofibrate 145 MG PO SCH (10:00)
[2019-12-23] MEDS ORDERED: POTASSIUM CHL 20 Meq TABLET PO ONE (10:45)
[2019-12-23] MEDS: POLYETHYLENE GLYCOL 17 GM PWDR PO SCH (10:54)
[2019-12-23] MEDS: levoFLOXacin 250MG 50 ML IV SCH (10:54)
[2019-12-23] MEDS: NICOTINE 21MG/24 HR TOPICAL PATCH TD SCH (11:00)
[2019-12-23] MEDS: ASPirin 81 mg TAB PO SCH (11:02)
[2019-12-23] MEDS: FOLIC ACID 1 MG TAB PO SCH (11:03)
[2019-12-23] MEDS: PANTOPRAZOLE 40 MG TAB PO SCH ×2 (11:04→21:45)
[2019-12-23] MEDS ORDERED: GOLYTELY 4L KIT PO ONE (12:00)
[2019-12-23 12:56] VITALS: BP 149/62
[2019-12-23] MEDS: TAMSULOSIN HYDROCHLORIDE 0.4 MG CAP PO SCH (17:00)
[2019-12-23 17:05] VITALS: BP 152/68
[2019-12-23] MEDS: AMITRIPTYLINE HCL 25 MG TAB PO SCH (21:45)
[2019-12-23] MEDS: ATORVASTATIN 20 MG TAB PO SCH (21:45)
[2019-12-23 22:00] VITALS: BP 145/57
[2019-12-24] VITALS (7 sets, daily range): BP systolic 133–145; BP diastolic 50–57
[2019-12-24] MEDS: IPRATROPIUM BROM 0.5 MG/2.5ML INH SOL NEB SCH ×4 (00:20→18:42)
[2019-12-24] MEDS: ACETYLCYSTEINE 10 %(100MG/ML) SOL 4ML NEB SCH ×4 (00:20→18:43)
[2019-12-24] MEDS: ALBUTEROL SULF 2.5 MG/0.5ML(0.5%) NEB SOLN NEB SCH ×4 (00:20→18:42)
[2019-12-24 06:05] LABS: Basophils # (auto) 0.1 10 ^3/uL (0-0.2); Basophils % (auto) 1.3 % (0.0-2.0); Eosinophils # (auto) 0.6 10 ^3/uL (0-0.8); Eosinophils % (auto) 7.2 % (0.0-7.0); Hematocrit 25.5 % (41.0-53.0); Hemoglobin 8.5 g/dL (13.5-17.5); Lymphocytes # (auto) 1.2 10 ^3/uL (0.4-5.4); Lymphocytes % (auto) 14.1 % (10.0-50.0); Mean Corpuscular Hemoglobin 30.3 pg (28.0-32.0); Mean Corpuscular Hgb Conc. 33.5 g/dL (32.0-36.0); Mean Corpuscular Volume 90.4 fL (80.0-100.0); Monocytes # (auto) 0.6 10 ^3/uL (0-1.3); Monocytes % (auto) 7.8 % (0.0-12.0); Neutrophils # (auto) 5.7 10 ^3/uL (1.6-8.6); Neutrophils % (auto) 69.6 % (37.0-80.0); Platelet Count (auto) 334 10^3/uL (140-450); Red Blood Cells 2.82 10^6/uL (4.5-5.90); Red Cell Distribution Width 15.6 % (11.8-14.3); White Blood Cell 8.2 10^3/uL (4.4-10.8)
[2019-12-24] MEDS: InsuLIN REG 1unit/0.01ml Soln (100units/ml) SC SCH ×4 (06:12→22:18)
[2019-12-24] MEDS: ACCU-CHEK COMFORT CURVE STRIP VI SCH ×4 (06:12→22:09)
[2019-12-24 06:25] LABS: Calcium 8.7 mg/dL (8.5-10.1); Potassium 3.5 mmol/L (3.5-5.1)
[2019-12-24 06:28] LABS: BUN/Creatinine Ratio 25.3
[2019-12-24 06:59] LABS: INR 1.19 (0.9-1.15); Partial Thromboplastin Time 36.4 sec (23.64-32.05)
[2019-12-24] MEDS: ASPirin 81 mg TAB PO SCH (10:00)
[2019-12-24] MEDS: Fenofibrate 145 MG PO SCH (10:00)
[2019-12-24] MEDS: PANTOPRAZOLE 40 MG TAB PO SCH ×3 (10:00→22:07)
[2019-12-24] MEDS: POLYETHYLENE GLYCOL 17 GM PWDR PO SCH (10:00)
[2019-12-24] MEDS ORDERED: MIDAZOLAM HCL 1MG/1ML-2 ML VIAL ONE ×2 (10:59→11:05)
[2019-12-24] MEDS ORDERED: diphenhdrAMINE HCL 50 MG/1 ML VL ONE (11:00)
[2019-12-24] MEDS ORDERED: METOCLOPRAMIDE HCL 5MG/ml INJ 2ml VIAL ONE (11:00)
[2019-12-24] MEDS ORDERED: EPINEPHrine HCL 1 MG/1 ML AMP ONE (11:15)
[2019-12-24] MEDS ORDERED: EPINEPHrine HCL 1 MG/10 ML SYRG ONE (11:16)
[2019-12-24] MEDS ORDERED: NALOXONE HCL 0.4 MG/ML VIAL IV PRN (11:45)
[2019-12-24] MEDS ORDERED: ACCU-CHEK COMFORT CURVE STRIP VI ONE (11:45)
[2019-12-24] MEDS ORDERED: HYDROmorphone HCL 2 MG/ML VL IV PRN (11:45)
[2019-12-24] MEDS ORDERED: ONDANSETRON HCL 4 MG/2 ML VIAL IV PRN (11:45)
[2019-12-24] MEDS: levoFLOXacin 250MG 50 ML IV SCH (12:59)
[2019-12-24] MEDS: NICOTINE 21MG/24 HR TOPICAL PATCH TD SCH (12:59)
[2019-12-24] MEDS: FOLIC ACID 1 MG TAB PO SCH (12:59)
[2019-12-24] MEDS: SUCRALFATE 1 GM/10 ML ORAL SUSP PO SCH ×2 (12:59→22:17)
[2019-12-24] MEDS: METOPROLOL SUCCINATE XL 50 MG TAB PO SCH (13:01)
[2019-12-24] MEDS: TAMSULOSIN HYDROCHLORIDE 0.4 MG CAP PO SCH (17:35)
[2019-12-24] MEDS: ATORVASTATIN 20 MG TAB PO SCH (22:08)
[2019-12-24] MEDS: AMITRIPTYLINE HCL 25 MG TAB PO SCH (22:08)
[2019-12-25] MEDS: ACETYLCYSTEINE 10 %(100MG/ML) SOL 4ML NEB SCH ×4 (00:36→18:33)
[2019-12-25] MEDS: ALBUTEROL SULF 2.5 MG/0.5ML(0.5%) NEB SOLN NEB SCH ×4 (00:36→18:32)
[2019-12-25] MEDS: IPRATROPIUM BROM 0.5 MG/2.5ML INH SOL NEB SCH ×4 (00:36→18:33)
[2019-12-25 05:47] VITALS: BP 128/53
[2019-12-25] MEDS: ACCU-CHEK COMFORT CURVE STRIP VI SCH ×4 (06:33→22:16)
[2019-12-25] MEDS: InsuLIN REG 1unit/0.01ml Soln (100units/ml) SC SCH ×4 (06:33→22:17)
[2019-12-25] MEDS: SUCRALFATE 1 GM/10 ML ORAL SUSP PO SCH ×4 (06:42→22:16)
[2019-12-25 07:12] LABS: Basophils # (auto) 0.1 10 ^3/uL (0-0.2); Basophils % (auto) 1.2 % (0.0-2.0); Hemoglobin 7.1 g/dL (13.5-17.5); Lymphocytes # (auto) 0.8 10 ^3/uL (0.4-5.4); Monocytes # (auto) 0.5 10 ^3/uL (0-1.3); Neutrophils # (auto) 4.1 10 ^3/uL (1.6-8.6); White Blood Cell 5.9 10^3/uL (4.4-10.8)
[2019-12-25 07:15] LABS: Eosinophils # (auto) 0.4 10 ^3/uL (0-0.8); Eosinophils % (auto) 7.5 % (0.0-7.0); Hematocrit 20.6 % (41.0-53.0); Lymphocytes % (auto) 13.6 % (10.0-50.0); Mean Corpuscular Hemoglobin 31.3 pg (28.0-32.0); Mean Corpuscular Hgb Conc. 34.5 g/dL (32.0-36.0); Mean Corpuscular Volume 90.6 fL (80.0-100.0); Monocytes % (auto) 8.8 % (0.0-12.0); Neutrophils % (auto) 68.9 % (37.0-80.0); Platelet Count (auto) 239 10^3/uL (140-450); Red Blood Cells 2.28 10^6/uL (4.5-5.90); Red Cell Distribution Width 15.5 % (11.8-14.3)
[2019-12-25 07:32] LABS: Calcium 8.2 mg/dL (8.5-10.1); Potassium 3.4 mmol/L (3.5-5.1)
[2019-12-25 09:00] VITALS: BP 134/52
[2019-12-25] MEDS: Fenofibrate 145 MG PO SCH (10:00)
[2019-12-25] MEDS: levoFLOXacin 250MG 50 ML IV SCH (10:34)
[2019-12-25] MEDS: NICOTINE 21MG/24 HR TOPICAL PATCH TD SCH (10:35)
[2019-12-25] MEDS: FOLIC ACID 1 MG TAB PO SCH (10:36)
[2019-12-25] MEDS: POLYETHYLENE GLYCOL 17 GM PWDR PO SCH (10:36)
[2019-12-25] MEDS: PANTOPRAZOLE 40 MG TAB PO SCH ×2 (10:37→22:16)
[2019-12-25] MEDS: METOPROLOL SUCCINATE XL 50 MG TAB PO SCH (10:37)
[2019-12-25] MEDS: ASPirin 81 mg TAB PO SCH (10:38)
[2019-12-25 14:15] VITALS: BP 127/48
[2019-12-25] MEDS ORDERED: BUMETANIDE 2.5mg/10ml (0.25 mg/ml) INJ IV ONE (14:45)
[2019-12-25 16:30] VITALS: BP 111/49
[2019-12-25] MEDS: TAMSULOSIN HYDROCHLORIDE 0.4 MG CAP PO SCH (17:58)
[2019-12-25 22:00] VITALS: BP 138/55
[2019-12-25] MEDS: AMITRIPTYLINE HCL 25 MG TAB PO SCH (22:15)
[2019-12-25] MEDS: ATORVASTATIN 20 MG TAB PO SCH (22:15)
[2019-12-26] VITALS (10 sets, daily range): BP systolic 116–157; BP diastolic 47–60
[2019-12-26] MEDS: ACETYLCYSTEINE 10 %(100MG/ML) SOL 4ML NEB SCH ×4 (00:27→18:00)
[2019-12-26] MEDS: ALBUTEROL SULF 2.5 MG/0.5ML(0.5%) NEB SOLN NEB SCH ×4 (00:27→18:00)
[2019-12-26] MEDS: IPRATROPIUM BROM 0.5 MG/2.5ML INH SOL NEB SCH ×4 (00:27→18:00)
[2019-12-26] MEDS: ACCU-CHEK COMFORT CURVE STRIP VI SCH ×4 (06:48→22:00)
[2019-12-26] MEDS: InsuLIN REG 1unit/0.01ml Soln (100units/ml) SC SCH ×4 (06:49→23:08)
[2019-12-26] MEDS: SUCRALFATE 1 GM/10 ML ORAL SUSP PO SCH ×4 (06:49→22:58)
[2019-12-26 09:47] LABS: Basophils # (auto) 0.1 10 ^3/uL (0-0.2); Basophils % (auto) 1.5 % (0.0-2.0); Eosinophils # (auto) 0.4 10 ^3/uL (0-0.8); Eosinophils % (auto) 7.8 % (0.0-7.0); Hematocrit 27.2 % (41.0-53.0); Hemoglobin 9.2 g/dL (13.5-17.5); Lymphocytes # (auto) 0.7 10 ^3/uL (0.4-5.4); Lymphocytes % (auto) 13.4 % (10.0-50.0); Mean Corpuscular Hemoglobin 30.5 pg (28.0-32.0); Mean Corpuscular Hgb Conc. 33.8 g/dL (32.0-36.0); Mean Corpuscular Volume 90.2 fL (80.0-100.0); Monocytes # (auto) 0.4 10 ^3/uL (0-1.3); Monocytes % (auto) 6.7 % (0.0-12.0); Neutrophils # (auto) 3.9 10 ^3/uL (1.6-8.6); Neutrophils % (auto) 70.6 % (37.0-80.0); Platelet Count (auto) 269 10^3/uL (140-450); Red Blood Cells 3.02 10^6/uL (4.5-5.90); Red Cell Distribution Width 15.7 % (11.8-14.3); White Blood Cell 5.5 10^3/uL (4.4-10.8)
[2019-12-26] MEDS: Fenofibrate 145 MG PO SCH (10:00)
[2019-12-26 10:03] LABS: Calcium 8.4 mg/dL (8.5-10.1); Potassium 3.1 mmol/L (3.5-5.1)
[2019-12-26] MEDS: POLYETHYLENE GLYCOL 17 GM PWDR PO SCH (10:29)
[2019-12-26] MEDS: FOLIC ACID 1 MG TAB PO SCH (10:29)
[2019-12-26] MEDS: METOPROLOL SUCCINATE XL 50 MG TAB PO SCH (10:29)
[2019-12-26] MEDS ORDERED: POTASSIUM CHLORIDE 20 MEQ, LIDOCAINE 1% (LOCAL ANESTH.) 2 ML in SODIUM CHL 0.9% 100 ML IV ONE (10:30)
[2019-12-26] MEDS ORDERED: POTASSIUM CHL 20 Meq TABLET PO ONE (10:30)
[2019-12-26] MEDS ORDERED: MAGNESIUM OXIDE 400 MG TAB PO ONE (10:30)
[2019-12-26] MEDS: ASPirin 81 mg TAB PO SCH (10:31)
[2019-12-26] MEDS: PANTOPRAZOLE 40 MG TAB PO SCH ×2 (10:31→22:58)
[2019-12-26] MEDS: levoFLOXacin 250MG 50 ML IV SCH (10:31)
[2019-12-26] MEDS ORDERED: POTA-180 PO (10:33)
[2019-12-26] MEDS ORDERED: ALB5IS NEB (10:33)
[2019-12-26] MEDS ORDERED: ATOR20TA50 PO (10:33)
[2019-12-26] MEDS ORDERED: FURO40TA4 PO (10:33)
[2019-12-26] MEDS ORDERED: PANT40T PO (10:33)
[2019-12-26] MEDS ORDERED: TAM04C PO (10:33)
[2019-12-26] MEDS ORDERED: ASPI81CH43 PO (10:33)
[2019-12-26] MEDS ORDERED: AMI25T PO (10:33)
[2019-12-26] MEDS ORDERED: FOLI1TAB6 PO (10:33)
[2019-12-26] MEDS ORDERED: METO25TA93 PO (10:33)
[2019-12-26] MEDS ORDERED: SUCR1TAB38 OR (10:35)
[2019-12-26] MEDS ORDERED: GLIP5TAB12 PO (10:35)
[2019-12-26] MEDS: NICOTINE 21MG/24 HR TOPICAL PATCH TD SCH (11:04)
[2019-12-26] MEDS: TAMSULOSIN HYDROCHLORIDE 0.4 MG CAP PO SCH (19:40)
[2019-12-26] MEDS: ATORVASTATIN 20 MG TAB PO SCH (22:58)
[2019-12-26] MEDS: AMITRIPTYLINE HCL 25 MG TAB PO SCH (23:04)
[2019-12-27] MEDS: ACETYLCYSTEINE 10 %(100MG/ML) SOL 4ML NEB SCH ×3 (02:10→11:24)
[2019-12-27] MEDS: IPRATROPIUM BROM 0.5 MG/2.5ML INH SOL NEB SCH ×3 (02:10→11:23)
[2019-12-27] MEDS: ALBUTEROL SULF 2.5 MG/0.5ML(0.5%) NEB SOLN NEB SCH ×3 (02:10→11:23)
[2019-12-27 05:00] VITALS: BP 121/86
[2019-12-27] MEDS: SUCRALFATE 1 GM/10 ML ORAL SUSP PO SCH ×3 (07:00→18:13)
[2019-12-27] MEDS: ACCU-CHEK COMFORT CURVE STRIP VI SCH ×3 (07:00→17:00)
[2019-12-27] MEDS: InsuLIN REG 1unit/0.01ml Soln (100units/ml) SC SCH ×3 (07:24→17:00)
[2019-12-27 07:48] LABS: Basophils # (auto) 0.1 10 ^3/uL (0-0.2); Basophils % (auto) 1.8 % (0.0-2.0); Eosinophils # (auto) 0.6 10 ^3/uL (0-0.8); Eosinophils % (auto) 9.7 % (0.0-7.0); Hematocrit 29.7 % (41.0-53.0); Lymphocytes # (auto) 1.1 10 ^3/uL (0.4-5.4); Lymphocytes % (auto) 17.2 % (10.0-50.0); Mean Corpuscular Hemoglobin 30.9 pg (28.0-32.0); Mean Corpuscular Hgb Conc. 33.8 g/dL (32.0-36.0); Mean Corpuscular Volume 91.5 fL (80.0-100.0); Monocytes # (auto) 0.6 10 ^3/uL (0-1.3); Monocytes % (auto) 8.9 % (0.0-12.0); Neutrophils # (auto) 4.1 10 ^3/uL (1.6-8.6); Neutrophils % (auto) 62.4 % (37.0-80.0); Nucleated Red Blood Cells % 0.1 %; Platelet Count (auto) 302 10^3/uL (140-450); Red Blood Cells 3.24 10^6/uL (4.5-5.90); Red Cell Distribution Width 15.9 % (11.8-14.3); White Blood Cell 6.6 10^3/uL (4.4-10.8)
[2019-12-27 07:54] LABS: BUN/Creatinine Ratio 21.7; Calcium 8.5 mg/dL (8.5-10.1); Potassium 4.3 mmol/L (3.5-5.1)
[2019-12-27] MEDS: Fenofibrate 145 MG PO SCH (10:00)
[2019-12-27] MEDS: levoFLOXacin 250MG 50 ML IV SCH (10:07)
[2019-12-27] MEDS: FOLIC ACID 1 MG TAB PO SCH (10:07)
[2019-12-27] MEDS: ASPirin 81 mg TAB PO SCH (10:07)
[2019-12-27] MEDS: PANTOPRAZOLE 40 MG TAB PO SCH (10:08)
[2019-12-27] MEDS: POLYETHYLENE GLYCOL 17 GM PWDR PO SCH (10:08)
[2019-12-27] MEDS: METOPROLOL SUCCINATE XL 50 MG TAB PO SCH (10:09)
[2019-12-27] MEDS: NICOTINE 21MG/24 HR TOPICAL PATCH TD SCH (10:10)
[2019-12-27 13:00] VITALS: BP 116/52
[2019-12-27 16:42] VITALS: BP 117/63
[2019-12-27 17:00] VITALS: BP 147/60
[2019-12-27] MEDS: TAMSULOSIN HYDROCHLORIDE 0.4 MG CAP PO SCH (18:13)
== END 2019-12-27 19:45 | disposition home health service (06) | DRG 377 ==
LOC: ER 16:11 → TELE-CENTR 16:12
PROVIDERS: ADMIT Nurse Practitioner Acute Care; ATTEND Internal Medicine
PROC: 30233N1 Transfusion of Nonautologous Red Blood Cells into Peripheral Vein, Percutaneous Approach (ICD-10-PCS; 2019-12-20)
PROC: 0W3P8ZZ Control Bleeding in Gastrointestinal Tract, Via Natural or Artificial Opening Endoscopic (ICD-10-PCS; principal; 2019-12-24 10:56)
DX: K26.0 Acute duodenal ulcer with hemorrhage (principal); J96.00 Acute respiratory failure, unspecified whether with hypoxia or hypercapnia; I50.23 Acute on chronic systolic (congestive) heart failure; N17.0 Acute kidney failure with tubular necrosis; E87.1 Hypo-osmolality and hyponatremia; E87.3 Alkalosis; I25.10 Atherosclerotic heart disease of native coronary artery without angina pectoris; N18.3 Chronic kidney disease, stage 3 (moderate); J44.9 Chronic obstructive pulmonary disease, unspecified; E66.9 Obesity, unspecified; E88.09 Other disorders of plasma-protein metabolism, not elsewhere classified; Z95.5 Presence of coronary angioplasty implant and graft; I73.9 Peripheral vascular disease, unspecified; K29.70 Gastritis, unspecified, without bleeding; Z68.30 Body mass index [BMI] 30.0-30.9, adult; I12.9 Hypertensive chronic kidney disease with stage 1 through stage 4 chronic kidney disease, or unspecified chronic kidney disease
CPT/HCPCS: 36415; 36600; 43255; 71045; 76775; 80048; 80053; 80061; 81001; 82270; 82306; 82570; 82607; 82746; 82784; 82805; 82962; 83036; 83735; 83880; 83970; 84100; 84156; 84300; 84439; 84443; 84484; 85025; 85379; 85610; 85730; 86334; 86850; 86870; 86880; 86900; 86901; 86906; 86920; 86922; 87070; 87086; 87205; 87804; 93005; 93306; 93970; 94640; 96374; 97116; 97163; 97530; G0378; J0171; J1100; J1815; J2001; J2250; P9047

== ENCOUNTER 2020-04-14 15:13 | Inpatient (IN) | payer MEDICARE, OTHER ==
[~2020-04-14] VITALS: Ht 175.3 cm; Wt 113.4 kg
[~2020-04-14 15:13] MED LIST changes: +ALB5IS NEB; -ATOR10TA PO; +ATOR20TA50 PO; -CLOP75TA28 PO; -CYA100I PO; -DULA1INJ SC; -FENO145T27 OR; -FERR-20 PO; +FOLI1TAB6 PO; -GABA300C10 PO; -INSU100I24 SC; -LEVEMIR SC; -METO-6 PO; +METO25TA93 PO; +POTA-180 PO; +SUCR1TAB38 OR; +TAM04C PO
[2020-04-14 16:23] LABS: Urine Bacteria NONE SEEN /hpf (None Seen); Urine Blood Negative /uL (Negative); Urine Hyaline Cast MANY /lpf (0 - 2); Urine Mucus FEW (None Seen); Urine Specific Gravity 1.013 (1.001-1.035); Urine WBC 1 /hpf (0 - 3)
[2020-04-14 17:10] LABS: Basophils # (auto) 0.1 10 ^3/uL (0-0.2); Eosinophils # (auto) 0.4 10 ^3/uL (0-0.8); Hemoglobin 7.5 g/dL (13.5-17.5); Lymphocytes # (auto) 0.7 10 ^3/uL (0.4-5.4); Lymphocytes % (auto) 11.1 % (10.0-50.0); Monocytes # (auto) 0.6 10 ^3/uL (0-1.3)
[2020-04-14 17:13] LABS: Basophils % (auto) 1.1 % (0.0-2.0); Eosinophils % (auto) 5.9 % (0.0-7.0); Hematocrit 23.4 % (41.0-53.0); Mean Corpuscular Hemoglobin 25.2 pg (28.0-32.0); Mean Corpuscular Hgb Conc. 32.2 g/dL (32.0-36.0); Mean Corpuscular Volume 78.3 fL (80.0-100.0); Monocytes % (auto) 8.4 % (0.0-12.0); Neutrophils # (auto) 4.9 10 ^3/uL (1.6-8.6); Neutrophils % (auto) 73.5 % (37.0-80.0); Platelet Count (auto) 345 10^3/uL (140-450); Red Blood Cells 2.99 10^6/uL (4.5-5.90); White Blood Cell 6.7 10^3/uL (4.4-10.8)
[2020-04-14 17:19] LABS: Chloride 105 mmol/L (98-107); Potassium 3.5 mmol/L (3.5-5.1); Sodium 139 mmol/L (136-145)
[2020-04-14 17:22] LABS: Albumin 2.1 g/dL (3.4-5.0); Anion Gap 9 (5-15); BUN/Creatinine Ratio 17.3; Blood Urea Nitrogen 40 mg/dL (7-18); Calcium 7.8 mg/dL (8.5-10.1); Carbon Dioxide 25 mmol/L (21-32); GFR African American 35 mL/min; GFR Non-African American 29 mL/min; Glucose 123 mg/dL (74-106)
[2020-04-14 17:27] LABS: Alanine Aminotransferase 10 U/L (16-61); Alkaline Phosphatase 64 U/L (45-117); Aspartate Aminotransferase 26 U/L (15-37); Bilirubin, Total 0.9 mg/dL (0.2-1.0); Total Protein 6.9 g/dL (6.4-8.2)
[2020-04-14 17:33] LABS: Red Cell Distribution Width 24.1 % (11.8-14.3)
[2020-04-14] MEDS ORDERED: FUROSEMIDE 40 MG/4 ML VIAL IV ONE (18:15)
[2020-04-14] MEDS ORDERED: LACTULOSE 20Gm/30ML SOLN PO PRN (19:00)
[2020-04-14] MEDS ORDERED: ALBUMIN 25% 50 ML IV ONE (19:00)
[2020-04-14] MEDS ORDERED: DOCUSATE SOD 100 MG CAP PO PRN (19:00)
[2020-04-14] MEDS ORDERED: LORazepam 0.5 MG TAB PO PRN (19:00)
[2020-04-14] MEDS ORDERED: MORPHINE SULF INJ 2 MG/ML SYRINGE 1ML IV PRN (19:00)
[2020-04-14] MEDS ORDERED: NITROGLYCERIN 0.4 MG SL TAB SL PRN (19:00)
[2020-04-14] MEDS ORDERED: HYDROcodone-ACET 5/325MG TAB PO PRN (19:00)
[2020-04-14] MEDS ORDERED: ALUM & MAG HYDROX-SIMETH LIQ(MAALOX) 30 ML PO PRN (19:00)
[2020-04-14] MEDS ORDERED: ONDANSETRON HCL 4 MG/2 ML VIAL IV PRN (19:00)
[2020-04-14] MEDS ORDERED: ACETAMINOPHEN 325 MG TAB PO PRN (19:00)
[2020-04-14] MEDS ORDERED: DEXTROSE (50%) 50ML SYRG IV PRN (19:15)
[2020-04-14] MEDS ORDERED: cefTRIAXone 1GM/50ML D5W 50 ML IV ONE (19:15)
[2020-04-14 21:30] VITALS: BP 154/67
--- NOTE | 2020-04-14 21:30 | NUR ---
Telemetry admit from [facility] admitted to Telemetry unit after SBAR received. Patient oriented to JUAN GANN, RN primary RN, unit, room, bed, and unit policies regarding patient care and visiting hours. Patient now on continuous telemetry monitoring, tele box # 55 and telemetry reading on arrival to unit is 62 HR. Patient placed on bedside oxygen, weighed by bedscale and encouraged to call if they need something. All questions and concerns addressed, patient verbalized understanding. Will continue to monitor.
--- NOTE | 2020-04-14 21:35 | NUR ---
Meds from ER not given Received a call from ER fast track. Medications were not given to patient because patient had no nurse and was waiting in the lobby. Will administer scheduled and one time meds that were not given per md orders. Will continue to monitor.
[2020-04-14] MEDS: ACCU-CHEK COMFORT CURVE STRIP VI SCH (22:00)
[2020-04-14] MEDS ORDERED: IPRATROPIUM BROM 0.5 MG/2.5ML INH SOL NEB SCH (22:00)
[2020-04-14] MEDS: InsuLIN REG 1unit/0.01ml Soln (100units/ml) SC SCH (22:00)
[2020-04-14 22:13] LABS: Amphetamine Screen, Urine NEGATIVE (NEGATIVE); Barbiturate Scree,Urine NEGATIVE (NEGATIVE); Benzodiazephine Screen, Urine NEGATIVE (NEGATIVE); Cannabinoid Screen, Urine NEGATIVE (NEGATIVE); Cocaine Screen, Urine NEGATIVE (NEGATIVE); Opiate Scree,Urine NEGATIVE (NEGATIVE); Phencyclidine Screen, Urine NEGATIVE (NEGATIVE)
[2020-04-14] MEDS: PANTOPRAZOLE 40 MG TAB PO SCH (22:44)
[2020-04-14] MEDS: ATORVASTATIN 20 MG TAB PO SCH (22:44)
[2020-04-14] MEDS: SUCRALFATE 1 GM TAB PO SCH (22:44)
[2020-04-14] MEDS: AMITRIPTYLINE HCL 25 MG TAB PO SCH (22:46)
[2020-04-14 22:48] VITALS: BP 154/67
[2020-04-14 23:48] LABS: Cholesterol 89 mg/dL (< 200)
[2020-04-14 23:51] LABS: HDL Cholesterol 10 mg/dL (40-59); LDL Cholesterol 56 mg/dL (< 100); Triglycerides 140 mg/dL (< 150)
[2020-04-15] VITALS (8 sets, daily range): BP systolic 104–119; BP diastolic 30–59
[2020-04-15] MEDS: ALBUMIN 25% 50 ML IV SCH ×3 (01:10→17:03)
[2020-04-15] MEDS: ACCU-CHEK COMFORT CURVE STRIP VI SCH ×4 (05:48→21:11)
[2020-04-15] MEDS: InsuLIN REG 1unit/0.01ml Soln (100units/ml) SC SCH ×4 (05:48→21:12)
[2020-04-15] MEDS: FUROSEMIDE 20 MG/2 ML VIAL IV SCH ×2 (05:50→18:40)
[2020-04-15] MEDS: SUCRALFATE 1 GM TAB PO SCH ×4 (05:51→21:10)
[2020-04-15 05:55] LABS: Basophils # (auto) 0.1 10 ^3/uL (0-0.2); Eosinophils # (auto) 0.4 10 ^3/uL (0-0.8); Lymphocytes # (auto) 0.7 10 ^3/uL (0.4-5.4); Monocytes # (auto) 0.5 10 ^3/uL (0-1.3); Neutrophils # (auto) 3.4 10 ^3/uL (1.6-8.6)
[2020-04-15 05:57] LABS: Basophils % (auto) 1.3 % (0.0-2.0); Eosinophils % (auto) 7.9 % (0.0-7.0); Hematocrit 21.6 % (41.0-53.0); Lymphocytes % (auto) 14.7 % (10.0-50.0); Mean Corpuscular Hemoglobin 24.8 pg (28.0-32.0); Mean Corpuscular Hgb Conc. 31.7 g/dL (32.0-36.0); Mean Corpuscular Volume 78.1 fL (80.0-100.0); Monocytes % (auto) 10.1 % (0.0-12.0); Platelet Count (auto) 275 10^3/uL (140-450); Red Blood Cells 2.76 10^6/uL (4.5-5.90); White Blood Cell 5.1 10^3/uL (4.4-10.8)
[2020-04-15 06:14] LABS: INR 1.29 (0.9-1.15); Partial Thromboplastin Time 38.4 sec (23.64-32.05)
[2020-04-15 06:28] LABS: Red Cell Distribution Width 24.1 % (11.8-14.3)
[2020-04-15 06:30] LABS: Calcium 7.5 mg/dL (8.5-10.1); Hemoglobin 6.8 g/dL (13.5-17.5); Magnesium 2.7 mg/dL (1.6-2.6); Potassium 3.4 mmol/L (3.5-5.1)
--- NOTE | 2020-04-15 06:30 | NUR ---
Critical lab value Received critical lab value Hemoglobin 6.8. BY petroleum refinery laborer REN. Trip amador hospitalist. Will continue to monitor.
[2020-04-15 06:34] LABS: BUN/Creatinine Ratio 18.4; Bilirubin, Total 0.8 mg/dL (0.2-1.0); Phosphorus 3.4 mg/dL (2.5-4.90); Total Protein 6.2 g/dL (6.4-8.2)
--- NOTE | 2020-04-15 06:35 | NUR ---
Paged hospitalist Paged hospitalist regarding critical lab value. Awaiting call back. Will continue to monitor.
--- NOTE | 2020-04-15 06:58 | NUR ---
Hospitalist paged back. Doctor ordered one unit to transfuse today. Will ask patient for consent and Will endorse to day shift.
--- NOTE | 2020-04-15 07:15 | NUR ---
RECEIVED REPORT AND CONTINUATION OF CARE,PATIENT ASLEEP,EASILY AROUSABLE ,AWAKE,ALERT, ORIENTED,UPDATED WITH PLAN OF CARE, CALL LIGHT WITHIN REACH PATIENT INSTRUCTED,REMINDED TO CALL FOR ASSISTANCE ,SIDE RAILS UP X 2 BED ALARM ON,WILL CHECK PATIENT 1 HOUR AND NEEDED.
--- NOTE | 2020-04-15 07:35 | NUR ---
CLOSING NOTE Patient consented to blood transfusion. I let day shift nurse know. Consent signed in the chart. Patient is resting in bed. Watching tv. No sob or distress noted. Endorsed care to day shift RN Naomi.
--- NOTE | 2020-04-15 08:50 | NUR ---
RECEIVED A CALL FROM BLOOD BANK,PER TISH PATIENT HAS ANTIBODY,WILL INFORM WHEN BLOOD IS AVAILABLE.
--- NOTE | 2020-04-15 09:05 | NUR ---
[facility] COORDINATOR HERE TO SEE AND EXAMINED PATIENT,RECEIVED ORDERS
--- NOTE | 2020-04-15 09:30 | NUR ---
PATIENT SON CALLED (VERIFIED PASSWORD) UPDATED WITH PATIENT STATUS AND PLAN OF CARE
--- NOTE | 2020-04-15 09:32 | NUR ---
DR. Juliana KELLER CALLED,INFORMED OF CONSULTATION AND PATIENT STATUS,STATED WILL BE HERE TO SEE PATIENT THIS AFTERNOON
[2020-04-15] MEDS: SPIRONOLACTONE 25 MG TAB PO SCH (09:57)
[2020-04-15] MEDS: ASPirin 81 mg TAB PO SCH (09:57)
[2020-04-15] MEDS: FOLIC ACID 1 MG TAB PO SCH (09:59)
[2020-04-15] MEDS: PANTOPRAZOLE 40 MG TAB PO SCH ×2 (09:59→21:10)
[2020-04-15] MEDS ORDERED: POTASSIUM CHL 20 Meq TABLET PO ONE (10:00)
[2020-04-15] MEDS ORDERED: LISINOPRIL 5 MG TAB PO SCH (10:00)
[2020-04-15] MEDS ORDERED: METOPROLOL SUCCINATE XL 50 MG TAB PO SCH (10:00)
[2020-04-15] MEDS: cefTRIAXone 1GM/50ML D5W 50 ML IV SCH (10:00)
--- NOTE | 2020-04-15 10:00 | NUR ---
PATIENT INSTRUCTED ON FLUID RESTRICTION OF 1200CC/DAY ,EDUCATED IMPORTANCE,PATIENT VERBALIZED UNDERSTANDING.
--- NOTE | 2020-04-15 10:00 | NUR ---
LOVENOX HOLD AT THIS TIME ,PATIENT SCHEDULED FOR PARACENTESIS
--- NOTE | 2020-04-15 11:15 | NUR ---
ATTEMPTED TO START IV g#20 ,FAILED AFTER X2 ATTEMPT.
--- NOTE | 2020-04-15 11:25 | NUR ---
TO RADIOLOGY DEPT BY BED ACCOMPANIED BY RADIOLOGY STAFF FOR PARACENTESIS
--- NOTE | 2020-04-15 11:44 | NUR ---
MD INFORMED DR. Mack RICHARDS INFORMED PATIENT HAS ANTI BODY AND UNABLE TO START IV g#20 AFTER X 2 ATTEMPT,(NEEDING FOR BLOOD TRANSFUSION) RECEIVED ORDER FOR MID LINE
--- NOTE | 2020-04-15 12:45 | NUR ---
PARACENTESIS DONE BY DR NAVAS IN ULTRASOUND. PT TOLERATED WELL. VSS 135/[id number]%. 8700 ML OF ASCITIC FLUID REMOVED AND SENT TO THE LAB
--- NOTE | 2020-04-15 12:56 | NUR ---
RECEIVED FROM RADIOLOGY DEPT. POST PARACENTESIS,REMOVED 8,700 CC PER REPORT
[2020-04-15] MEDS: ENOXAPARIN SOD 40 MG/0.4 ML SYRINGE SC SCH (13:02)
--- NOTE | 2020-04-15 14:45 | NUR ---
MIDLINE,G#18 TO LEFT UPPER ARM,INSERTED BY PICC LINE RN
--- NOTE | 2020-04-15 15:15 | NUR ---
PRE TRANSFUSION VITAL SIGNS TAKEN, SEE TRANSFUSION RECORD/DOCUMENTATION
--- NOTE | 2020-04-15 15:24 | NUR ---
BLOOD TRANSFUSION STARTED,UNIT #[id number],PATIENT INSTRUCTED TO REPORT ANY TRANSFUSION REACTION SUCH CHILLS,FEVER,SOB,BACK PAIN,PRURITUS AND URTICARIA,PATIENT VERBALIZED UNDERSTANDING.
--- NOTE | 2020-04-15 15:26 | NUR ---
MD MONY KELLER HERE SEE AND EXAMINED PATIENT,RECEIVED ORDERS
[2020-04-15] MEDS: TAMSULOSIN HYDROCHLORIDE 0.4 MG CAP PO SCH (18:39)
--- NOTE | 2020-04-15 18:44 | NUR ---
BLOOD TRANSFUSION ENDED TOLERATED WELL,NO TRANSFUSION REACTION NOTED.
--- NOTE | 2020-04-15 19:10 | NUR ---
STATUS UNCHANGED NO DISTRESS NO DISCOMFORT.REPORT GIVEN TO INCOMING NOC SHIFT RN,
--- NOTE | 2020-04-15 19:18 | NUR ---
Opening note Assumed care of patient. Patient alert and orientated x4. No sob or distress noted. Bed locked in lowest position. Side rails up x2. POC reviewed. Patient verbalized understanding. Right paracentesis dressing dry and intact. Will continue to monitor.
[2020-04-15] MEDS: ATORVASTATIN 20 MG TAB PO SCH (21:10)
[2020-04-15] MEDS: AMITRIPTYLINE HCL 25 MG TAB PO SCH (21:10)
[2020-04-15 23:07] LABS: % Iron Saturation 73.7 % (20-55)
[2020-04-16 00:19] LABS: Carcinoembryonic Antigen 1.53 ng/mL (<5.0 OR =); Folate (Folic Acid) 6.97 ng/mL (5.38-24)
--- NOTE | 2020-04-16 05:00 | NUR ---
Blood pressure Retook patients blood pressure, blood pressure reading at 97/49. No sob or signs of distress. will continue to monitor.
[2020-04-16] MEDS: SUCRALFATE 1 GM TAB PO SCH ×4 (05:11→22:00)
[2020-04-16] MEDS: InsuLIN REG 1unit/0.01ml Soln (100units/ml) SC SCH ×4 (05:17→22:09)
[2020-04-16 05:18] VITALS: BP 88/39
[2020-04-16] MEDS: ACCU-CHEK COMFORT CURVE STRIP VI SCH ×4 (05:18→22:01)
[2020-04-16] MEDS: FUROSEMIDE 20 MG/2 ML VIAL IV SCH ×2 (06:00→17:27)
--- NOTE | 2020-04-16 07:25 | NUR ---
Closing note endorsed care to day shift RN. Patient is resting in bed. no sob or distress noted.
[2020-04-16 07:30] LABS: Basophils # (auto) 0.1 10 ^3/uL (0-0.2); Eosinophils # (auto) 0.4 10 ^3/uL (0-0.8); Eosinophils % (auto) 6.6 % (0.0-7.0); Hematocrit 26.4 % (41.0-53.0); Hemoglobin 8.4 g/dL (13.5-17.5); Lymphocytes # (auto) 0.8 10 ^3/uL (0.4-5.4); Mean Corpuscular Hemoglobin 25.5 pg (28.0-32.0); Mean Corpuscular Hgb Conc. 31.7 g/dL (32.0-36.0); Mean Corpuscular Volume 80.3 fL (80.0-100.0); Monocytes # (auto) 0.4 10 ^3/uL (0-1.3); Monocytes % (auto) 7.8 % (0.0-12.0); Neutrophils # (auto) 3.9 10 ^3/uL (1.6-8.6); Neutrophils % (auto) 70.6 % (37.0-80.0); Platelet Count (auto) 260 10^3/uL (140-450); Red Blood Cells 3.29 10^6/uL (4.5-5.90); White Blood Cell 5.6 10^3/uL (4.4-10.8)
--- NOTE | 2020-04-16 07:30 | NUR ---
Opening Shift Note Assumed care of patient, awake and alert. No S/S of distress/SOB or pain. Updated on POC and instructed to call for assistance as needed, patient verbalized understanding. Bed locked in lowest position, side rails up x2, call light within reach. Safety precautions in place. Will continue to monitor for changes Q1hr and PRN.
[2020-04-16 07:31] LABS: Red Cell Distribution Width 23.4 % (11.8-14.3)
[2020-04-16 07:46] LABS: INR 1.32 (0.9-1.15); Partial Thromboplastin Time 39.4 sec (23.64-32.05)
[2020-04-16 08:03] LABS: Albumin 1.9 g/dL (3.4-5.0); Calcium 7.7 mg/dL (8.5-10.1); Potassium 4.1 mmol/L (3.5-5.1)
[2020-04-16 08:06] LABS: BUN/Creatinine Ratio 18.4; Bilirubin, Total 1.2 mg/dL (0.2-1.0)
[2020-04-16 09:00] VITALS: BP 113/49
[2020-04-16] MEDS: ENOXAPARIN SOD 40 MG/0.4 ML SYRINGE SC SCH (09:44)
[2020-04-16] MEDS: ASPirin 81 mg TAB PO SCH (09:44)
[2020-04-16] MEDS: FOLIC ACID 1 MG TAB PO SCH (09:46)
[2020-04-16] MEDS: SPIRONOLACTONE 25 MG TAB PO SCH (09:46)
[2020-04-16] MEDS: PANTOPRAZOLE 40 MG TAB PO SCH ×2 (09:46→22:01)
[2020-04-16] MEDS: cefTRIAXone 1GM/50ML D5W 50 ML IV SCH (09:46)
[2020-04-16] MEDS: METOPROLOL TARTRATE 25 MG TAB PO SCH ×2 (11:18→22:00)
[2020-04-16] MEDS ORDERED: MIDAZOLAM HCL 5 MG/ML-1ML VIAL ONE (12:32)
[2020-04-16] MEDS ORDERED: LIDOCAINE VISCOUS 2% 15ML UD ONE (12:32)
[2020-04-16] MEDS ORDERED: diphenhdrAMINE HCL 50 MG/1 ML VL ONE (12:32)
[2020-04-16] MEDS ORDERED: SODIUM CHLORIDE LOCK 10 ML ONE (12:32)
[2020-04-16] MEDS ORDERED: fentaNYL CITRATE 100 MCG/2 ML VL ONE (12:33)
[2020-04-16 13:00] VITALS: BP 110/55
--- NOTE | 2020-04-16 13:42 | NUR ---
PATIENT TAKEN TO OR FOR PROCEDURE NO DISTRESS NOTED.
--- NOTE | 2020-04-16 15:30 | NUR ---
PATIENT BACK TO ROOM NO DISTRESS NOTED.
[2020-04-16] MEDS: TAMSULOSIN HYDROCHLORIDE 0.4 MG CAP PO SCH (17:28)
[2020-04-16 17:29] VITALS: BP 137/59
--- NOTE | 2020-04-16 19:22 | NUR ---
RECEIVED CALL FROM PATIENT'S SON ALFREDO, PASSWORD CONFIRMED. UPDATED ON PATIENT'S CURRENT SITUATION. ALFREDO REQUESTED TO HAVE MD TO CALL HIM TOMORROW. WILL PASS IT ON TO DAY SHIFT RN. CONTINUE TO MONITOR.
--- NOTE | 2020-04-16 19:29 | NUR ---
RECEIVED PATIENT FROM DAY SHIFT RN. PATIENT RESTING IN BED. NO S/S OF DISTRESS NOTED. DENIED PAIN FOR NOW. PATIENT'S AWARE OF CALL FROM HIS SON ALFREDO. SWOLLEN NOTED ON PATIENT'S LFA AND BL LOWER LEGS. POC INSTRUCTED AND ENCOURAGED PATIENT TO CALL FOR STATEMENT SERVICES REPRESENTATIVE IF NEEDED. BED IN LOWEST POSITION WITH SIDE RAILS UP X 2. CALL PEREZ WITHIN REACH. ALARM ON. CONTINUE TO MONITOR FOR CHANGES Q1H AND PRN.
[2020-04-16 22:00] VITALS: BP_SYST 118; BP_SYST 155; BP_DIAS 41; BP_DIAS 54
[2020-04-16] MEDS: AMITRIPTYLINE HCL 25 MG TAB PO SCH (22:00)
[2020-04-16] MEDS: ATORVASTATIN 20 MG TAB PO SCH (22:00)
--- NOTE | 2020-04-16 22:10 | NUR ---
ACCU-CHECK, BS 141. INSULIN GIVEN ORDERED. CONTINUE TO MONITOR
--- NOTE | 2020-04-17 03:01 | NUR ---
PATIENT SLEEPING. NO S/S OF DISTRESS NOTED. CONTINUE CARE.
[2020-04-17 05:00] VITALS: BP 123/53
[2020-04-17] MEDS: InsuLIN REG 1unit/0.01ml Soln (100units/ml) SC SCH ×2 (06:08→11:30)
[2020-04-17] MEDS: FUROSEMIDE 20 MG/2 ML VIAL IV SCH (06:08)
[2020-04-17] MEDS: SUCRALFATE 1 GM TAB PO SCH ×2 (06:08→12:08)
[2020-04-17] MEDS: ACCU-CHEK COMFORT CURVE STRIP VI SCH ×2 (06:08→12:09)
--- NOTE | 2020-04-17 06:36 | NUR ---
PATIENT C/O NECK PAIN @ 4/10 AND PREFERRED TYLENOL, MEDICATED PATIENT ORDERED. CONTINUE TO MONITOR.
[2020-04-17 09:00] VITALS: BP 109/50
[2020-04-17] MEDS: PANTOPRAZOLE 40 MG TAB PO SCH (09:33)
[2020-04-17] MEDS: SPIRONOLACTONE 25 MG TAB PO SCH (09:33)
[2020-04-17] MEDS: FOLIC ACID 1 MG TAB PO SCH (09:33)
[2020-04-17] MEDS: cefTRIAXone 1GM/50ML D5W 50 ML IV SCH (09:33)
[2020-04-17] MEDS: METOPROLOL TARTRATE 25 MG TAB PO SCH (09:34)
[2020-04-17] MEDS: ENOXAPARIN SOD 40 MG/0.4 ML SYRINGE SC SCH (09:34)
[2020-04-17 13:00] VITALS: BP 95/60
[2020-04-17 13:10] VITALS: BP 109/50
--- NOTE | 2020-04-17 15:21 | NUR ---
DISCHARGE INSTRUCTIONS PROVIDED TO PT AND SON. SON VERBALIZED UNDERSTANDING FOR PRESCRIPTION ORDERS AND FOLLOW UP APPOINTMENTS WITH PCP AND GI. EDUCATIONAL MATERIALS PROVIDED, ALL QUESTIONS AND CONCERNS ADDRESSED. IV CATHETER DC'D, MIDLINE AND PERIPHERAL, NO COMPLICATIONS NOTED, NO ACTIVE BLEEDING. TELE BOX REMOVED, AND RETURNED TO TELE DEPT. PT SAFELY ESCORTED OUT OF UNIT VIA WHEELCHAIR.
== END 2020-04-17 15:30 | disposition home or self-care (01) | DRG 374 ==
LOC: ER 15:13 → TELE 15:14 → TELE-WESTW 21:49
PROVIDERS: ADMIT Hospitalist; ATTEND Family Medicine
PROC: 0W9G3ZX Drainage of Peritoneal Cavity, Percutaneous Approach, Diagnostic (ICD-10-PCS; 2020-04-15)
PROC: 30233N1 Transfusion of Nonautologous Red Blood Cells into Peripheral Vein, Percutaneous Approach (ICD-10-PCS; 2020-04-15)
PROC: 0DB88ZX Excision of Small Intestine, Via Natural or Artificial Opening Endoscopic, Diagnostic (ICD-10-PCS; 2020-04-16)
PROC: 0DB78ZX Excision of Stomach, Pylorus, Via Natural or Artificial Opening Endoscopic, Diagnostic (ICD-10-PCS; 2020-04-16)
PROC: 0DB98ZX Excision of Duodenum, Via Natural or Artificial Opening Endoscopic, Diagnostic (ICD-10-PCS; principal; 2020-04-16 14:19)
DX: C17.0 Malignant neoplasm of duodenum (principal); I50.33 Acute on chronic diastolic (congestive) heart failure; E43 Unspecified severe protein-calorie malnutrition; K76.6 Portal hypertension; J98.11 Atelectasis; I13.0 Hypertensive heart and chronic kidney disease with heart failure and stage 1 through stage 4 chronic kidney disease, or unspecified chronic kidney disease; K70.31 Alcoholic cirrhosis of liver with ascites; D50.0 Iron deficiency anemia secondary to blood loss (chronic); G47.33 Obstructive sleep apnea (adult) (pediatric); K31.89 Other diseases of stomach and duodenum; D63.8 Anemia in other chronic diseases classified elsewhere; K29.20 Alcoholic gastritis without bleeding; I25.10 Atherosclerotic heart disease of native coronary artery without angina pectoris; E11.22 Type 2 diabetes mellitus with diabetic chronic kidney disease; Z95.5 Presence of coronary angioplasty implant and graft; Z87.11 Personal history of peptic ulcer disease; N18.3 Chronic kidney disease, stage 3 (moderate); E78.00 Pure hypercholesterolemia, unspecified; E78.5 Hyperlipidemia, unspecified; Z79.4 Long term (current) use of insulin; E66.01 Morbid (severe) obesity due to excess calories; I25.2 Old myocardial infarction; F10.10 Alcohol abuse, uncomplicated; F17.210 Nicotine dependence, cigarettes, uncomplicated; I70.0 Atherosclerosis of aorta; K80.20 Calculus of gallbladder without cholecystitis without obstruction; M43.16 Spondylolisthesis, lumbar region; N40.0 Benign prostatic hyperplasia without lower urinary tract symptoms; Z79.82 Long term (current) use of aspirin; Z79.899 Other long term (current) drug therapy; Z82.3 Family history of stroke; Z82.49 Family history of ischemic heart disease and other diseases of the circulatory system; K70.40 Alcoholic hepatic failure without coma; Z68.37 Body mass index [BMI] 37.0-37.9, adult
CPT/HCPCS: 10022; 36415; 36430; 43239; 71045; 74176; 76942; 80053; 80061; 80307; 81001; 82105; 82140; 82378; 82607; 82746; 82962; 83036; 83540; 83550; 83735; 83880; 83986; 84100; 84484; 85025; 85610; 85730; 86301; 86850; 86870; 86900; 86901; 86920; 86922; 87040; 87086; 87205; 89051; 93970; 96365; 96367; 96372; 96375; G0378; J0696; J1815; J2250